=== PATIENT | male | born 1945 | race Hispanic/Latino ===

== ENCOUNTER 2017-04-24 17:10 | Outpatient (CLI) | payer MEDICARE, MEDICAID ==
--- NOTE | 2017-04-24 18:49 | ULT ---
DOPPLER VENOUS ULTRASOUND LEFT LOWER EXTREMITY: 04/24/17 INDICATION: Left leg edema with pain and redness. TECHNIQUE: Ballesteros scale, color doppler and vascular duplex with spectral analysis was performed of the deep venou s structures of the left lower extremity. Common femoral vein, superficial femoral vein, popliteal v ein, posterior tibial vein, proximal greater saphenous and profunda veins were assessed. FINDINGS: Normal compression, flow, and augmentation seen within the deep venous structures of the left lower extremity. Incidental note is made of a mildly prominent lymph node seen within the left inguinal re gion measuring up to 1.1 x 3 cm. IMPRESSION: 1. No evidence of DVT to the left lower extremity. 2. 1.1 x 3 cm lymph node within the left inguinal region. POS: [facility]
== END 2017-04-24 17:11 | disposition home or self-care (01) ==
LOC: ULT 17:10
PROVIDERS: ATTEND Internal Medicine Medical Oncology
DX: M79.605 Pain in left leg (principal); R60.0 Localized edema; D47.1 Chronic myeloproliferative disease
CPT/HCPCS: 36415; 80053; 82248; 83615; 84100; 84550

== ENCOUNTER 2017-05-08 16:38 | Day surgery (SDC) | payer MEDICARE, MEDICAID ==
[2017-05-08] MEDS ORDERED: Epoetin 40,000 UNITS/ML VIAL SC SCH (17:00)
== END 2017-05-08 17:02 | disposition home or self-care (01) ==
LOC: ONC/OP 16:38
PROVIDERS: ATTEND Internal Medicine Medical Oncology
DX: D47.1 Chronic myeloproliferative disease (principal)
CPT/HCPCS: 96372; J0885

== ENCOUNTER 2017-05-29 16:29 | Day surgery (SDC) | payer MEDICARE, MEDICAID ==
[2017-05-29] MEDS ORDERED: Epoetin 40,000 UNITS/ML VIAL SC SCH (16:45)
== END 2017-05-29 16:48 | disposition home or self-care (01) ==
LOC: ONC/OP 16:29
PROVIDERS: ATTEND Internal Medicine Medical Oncology
DX: N18.4 Chronic kidney disease, stage 4 (severe) (principal); D63.1 Anemia in chronic kidney disease; D47.1 Chronic myeloproliferative disease
CPT/HCPCS: 96372

== ENCOUNTER 2017-06-12 16:03 | Day surgery (SDC) | payer MEDICARE, MEDICAID ==
[2017-06-12 16:21] VITALS: BP 177/76
[2017-06-12] MEDS ORDERED: Epoetin 40,000 UNITS/ML VIAL SC SCH (16:30)
== END 2017-06-12 16:21 | disposition home or self-care (01) ==
LOC: ONC/OP 16:03
PROVIDERS: ATTEND Internal Medicine Medical Oncology
DX: N18.4 Chronic kidney disease, stage 4 (severe) (principal); D63.1 Anemia in chronic kidney disease; D47.1 Chronic myeloproliferative disease; Z79.82 Long term (current) use of aspirin; Z79.899 Other long term (current) drug therapy
CPT/HCPCS: 96372

== ENCOUNTER 2017-06-26 16:21 | Day surgery (SDC) | payer MEDICARE, MEDICAID ==
[2017-06-26] MEDS ORDERED: Epoetin 40,000 UNITS/ML VIAL SC SCH (17:00)
== END 2017-06-26 17:07 | disposition home or self-care (01) ==
LOC: ONC/OP 16:21
PROVIDERS: ATTEND Internal Medicine Medical Oncology
DX: N18.4 Chronic kidney disease, stage 4 (severe) (principal); D63.1 Anemia in chronic kidney disease; D47.1 Chronic myeloproliferative disease
CPT/HCPCS: 96372

== ENCOUNTER 2017-07-10 16:01 | Day surgery (SDC) | payer MEDICARE, MEDICAID ==
[2017-07-10] MEDS ORDERED: Epoetin 40,000 UNITS/ML VIAL SC SCH (16:15)
== END 2017-07-10 17:43 | disposition home or self-care (01) ==
LOC: ONC/OP 16:01
PROVIDERS: ATTEND Internal Medicine Medical Oncology
DX: N18.9 Chronic kidney disease, unspecified (principal); D63.1 Anemia in chronic kidney disease; D47.1 Chronic myeloproliferative disease
CPT/HCPCS: 96372; J0885

== ENCOUNTER 2017-07-24 16:24 | Day surgery (SDC) | payer MEDICARE, MEDICAID ==
[2017-07-24] MEDS ORDERED: Epoetin 40,000 UNITS/ML VIAL SC SCH (16:45)
== END 2017-07-24 16:38 | disposition home or self-care (01) ==
LOC: ONC/OP 16:24
PROVIDERS: ATTEND Internal Medicine Medical Oncology
DX: N18.4 Chronic kidney disease, stage 4 (severe) (principal); D63.1 Anemia in chronic kidney disease; D47.1 Chronic myeloproliferative disease
CPT/HCPCS: 80053; 82248; 83615; 84100; 84550; 96372

== ENCOUNTER 2017-08-07 15:47 | Day surgery (SDC) | payer MEDICARE, MEDICAID ==
[2017-08-07] MEDS ORDERED: Epoetin 40,000 UNITS/ML VIAL SC SCH (16:00)
== END 2017-08-07 16:35 | disposition home or self-care (01) ==
LOC: ONC/OP 15:47
PROVIDERS: ATTEND Internal Medicine Medical Oncology
DX: N18.4 Chronic kidney disease, stage 4 (severe) (principal); D63.1 Anemia in chronic kidney disease; D47.1 Chronic myeloproliferative disease; D50.8 Other iron deficiency anemias
CPT/HCPCS: 36415; 82728; 96372; J0885

== ENCOUNTER 2017-08-21 16:03 | Day surgery (SDC) | payer MEDICARE, MEDICAID ==
[2017-08-21] MEDS ORDERED: Epoetin 40,000 UNITS/ML VIAL SC SCH (16:15)
[2017-08-21 17:16] VITALS: BP 124/60; TEMP 98.6
== END 2017-08-21 17:17 | disposition home or self-care (01) ==
LOC: ONC/OP 16:03
PROVIDERS: ATTEND Internal Medicine Medical Oncology
DX: D47.1 Chronic myeloproliferative disease (principal); N18.4 Chronic kidney disease, stage 4 (severe); D63.1 Anemia in chronic kidney disease
CPT/HCPCS: 96372; J0885

== ENCOUNTER 2017-09-18 16:31 | Day surgery (SDC) | payer MEDICARE, MEDICAID ==
[2017-09-18] MEDS ORDERED: Epoetin 40,000 UNITS/ML VIAL ONE (16:41)
[2017-09-18] MEDS ORDERED: Epoetin 40,000 UNITS/ML VIAL SC SCH (17:00)
== END 2017-09-18 16:53 | disposition home or self-care (01) ==
LOC: ONC/OP 16:31
PROVIDERS: ATTEND Internal Medicine Medical Oncology
DX: N18.4 Chronic kidney disease, stage 4 (severe) (principal); D63.1 Anemia in chronic kidney disease; D47.1 Chronic myeloproliferative disease; Z79.82 Long term (current) use of aspirin; Z79.899 Other long term (current) drug therapy
CPT/HCPCS: 96372; J0885

== ENCOUNTER 2017-10-02 16:24 | Day surgery (SDC) | payer MEDICARE, MEDICAID ==
[2017-10-02] MEDS ORDERED: Epoetin 40,000 UNITS/ML VIAL ONE (16:31)
[2017-10-02 16:43] VITALS: BP 190/74
== END 2017-10-02 16:44 | disposition home or self-care (01) ==
LOC: ONC/OP 16:24
PROVIDERS: ATTEND Internal Medicine Medical Oncology
DX: D47.1 Chronic myeloproliferative disease (principal); N18.4 Chronic kidney disease, stage 4 (severe); D63.1 Anemia in chronic kidney disease; I73.9 Peripheral vascular disease, unspecified; Z98.890 Other specified postprocedural states; Z87.891 Personal history of nicotine dependence
CPT/HCPCS: 96372; J0885

== ENCOUNTER 2017-10-09 16:07 | Day surgery (SDC) | payer MEDICARE, MEDICAID ==
[2017-10-09] MEDS ORDERED: Epoetin 40,000 UNITS/ML VIAL ONE (16:20)
== END 2017-10-09 16:28 | disposition home or self-care (01) ==
LOC: ONC/OP 16:07
PROVIDERS: ATTEND Internal Medicine Medical Oncology
DX: N18.4 Chronic kidney disease, stage 4 (severe) (principal); D63.1 Anemia in chronic kidney disease; D47.1 Chronic myeloproliferative disease; I70.25 Atherosclerosis of native arteries of other extremities with ulceration; Z87.891 Personal history of nicotine dependence
CPT/HCPCS: 96372; J0885

== ENCOUNTER 2017-10-16 16:23 | Day surgery (SDC) | payer MEDICARE, MEDICAID ==
[2017-10-16] MEDS ORDERED: Epoetin 40,000 UNITS/ML VIAL SC SCH ×2 (16:30→17:30)
[2017-10-16] MEDS ORDERED: Epoetin (ESRD) 20,000 UNITS/ML SC SCH (17:30)
== END 2017-10-16 17:52 | disposition home or self-care (01) ==
LOC: ONC/OP 16:23
PROVIDERS: ATTEND Internal Medicine Medical Oncology
DX: N18.4 Chronic kidney disease, stage 4 (severe) (principal); D63.1 Anemia in chronic kidney disease; D47.1 Chronic myeloproliferative disease
CPT/HCPCS: 96372; J0885; Q4081

== ENCOUNTER 2017-10-23 15:55 | Day surgery (SDC) | payer MEDICARE, MEDICAID ==
[2017-10-23] MEDS ORDERED: Epoetin (ESRD) 20,000 UNITS/ML SC SCH (16:15)
[2017-10-23] MEDS ORDERED: Epoetin 40,000 UNITS/ML VIAL SC SCH (16:15)
[2017-10-23 16:17] VITALS: BP 163/70; TEMP 98.4
== END 2017-10-23 17:14 | disposition home or self-care (01) ==
LOC: ONC/OP 15:55
PROVIDERS: ATTEND Internal Medicine Medical Oncology
DX: N18.4 Chronic kidney disease, stage 4 (severe) (principal); D47.1 Chronic myeloproliferative disease; D63.1 Anemia in chronic kidney disease; I73.9 Peripheral vascular disease, unspecified; M19.90 Unspecified osteoarthritis, unspecified site; Z87.891 Personal history of nicotine dependence; Z79.899 Other long term (current) drug therapy
CPT/HCPCS: 96372; J0885; Q4081

== ENCOUNTER 2017-10-30 16:26 | Day surgery (SDC) | payer MEDICARE, MEDICAID ==
[2017-10-30] MEDS ORDERED: Epoetin 40,000 UNITS/ML VIAL SC SCH (16:45)
[2017-10-30] MEDS ORDERED: Epoetin (ESRD) 20,000 UNITS/ML SC SCH (16:45)
== END 2017-10-30 17:09 | disposition home or self-care (01) ==
LOC: ONC/OP 16:26
PROVIDERS: ATTEND Internal Medicine Medical Oncology
DX: D47.1 Chronic myeloproliferative disease (principal); N18.4 Chronic kidney disease, stage 4 (severe); D63.1 Anemia in chronic kidney disease; Z87.891 Personal history of nicotine dependence
CPT/HCPCS: 96372; J0885; Q4081

== ENCOUNTER 2017-11-13 16:13 | Day surgery (SDC) | payer MEDICARE, MEDICAID ==
[2017-11-13] MEDS ORDERED: Epoetin (ESRD) 20,000 UNITS/ML SC SCH (16:30)
[2017-11-13] MEDS ORDERED: Epoetin 40,000 UNITS/ML VIAL SC SCH (16:30)
[2017-11-13 16:36] VITALS: BP 168/81; TEMP 98.5
== END 2017-11-13 17:01 | disposition home or self-care (01) ==
LOC: ONC/OP 16:13
PROVIDERS: ATTEND Internal Medicine Medical Oncology
DX: D47.1 Chronic myeloproliferative disease (principal); N18.4 Chronic kidney disease, stage 4 (severe); D63.1 Anemia in chronic kidney disease
CPT/HCPCS: 96372; J0885; Q4081

== ENCOUNTER 2017-11-27 16:07 | Day surgery (SDC) | payer MEDICARE, MEDICAID ==
[2017-11-27] MEDS ORDERED: Epoetin (ESRD) 20,000 UNITS/ML SC SCH (16:30)
[2017-11-27] MEDS ORDERED: Epoetin 40,000 UNITS/ML VIAL SC SCH (16:30)
[2017-11-27 17:19] VITALS: BP 134/77; TEMP 98.1
== END 2017-11-27 17:19 | disposition home or self-care (01) ==
LOC: ONC/OP 16:07
PROVIDERS: ATTEND Internal Medicine Medical Oncology
DX: D47.1 Chronic myeloproliferative disease (principal); N18.1 Chronic kidney disease, stage 1; D63.1 Anemia in chronic kidney disease; Z87.891 Personal history of nicotine dependence; Z79.82 Long term (current) use of aspirin; Z79.899 Other long term (current) drug therapy
CPT/HCPCS: 96372; J0885; Q4081

== ENCOUNTER 2018-01-09 20:50 | Inpatient (IN) | payer MEDICARE, MEDICAID ==
[~2018-01-09 20:50] MED LIST: ISOVUE-370 76%-LOCM 1 ML ONE
[2018-01-09] MEDS ORDERED: Acetaminophen 500 MG TAB ONE (21:42)
--- NOTE | 2018-01-09 22:06 | RAD ---
PORTABLE CHEST: 01/09/18 HISTORY: Chest pain. There is diffuse vascular congestion with diffuse hazy confluent alveolar infiltrates bilaterally sug gesting diffuse edema. Evidence of small effusions. Large caliber central line with tip overlying the right atrium. IMPRESSION: Evidence of vascular congestion and bilateral infiltrates suggesting edema. Inflammatory infiltrates cannot be excluded. POS: [facility]
[2018-01-09] MEDS ORDERED: Cefepime 2 GM VIAL ONE (22:20)
[2018-01-09 22:29] LABS: Hemoglobin 7.3 g/dL (14.0-18.0); Mean Corpuscular HGB CONC 32.5 g/dL (32.0-36.0); Mean Corpuscular Hemoglobin 32.8 pg (27.0-31.0); Mean Platelet Volume 7.4 fL (7.4-10.4); Platelet Count 337 thou/uL (130-400); RBC Distribution Width 16.2 % (11.5-14.5); Red Blood Cell (RBC) Count 2.22 mill/uL (4.70-6.10); White Blood Cell (WBC) Count 27.7 thou/uL (4.8-10.8)
[2018-01-09 22:43] LABS: Band 16 % (5-11); Lymphocytes 3 % (21-51); MDiff Complete? YES; Monocytes 6 % (0-10); Neutrophil 75 % (42-75)
[2018-01-09 22:45] LABS: Bilirubin Negative (Negative); Blood, Urine Negative (Negative); Clarity CLEAR (Clear); Glucose, Urine (Dipstick) 100 mg/dL (Negative); Leukocyte Negative (Negative); Nitrite Negative (Negative); Protein, Urine (Dipstick) 100 mg/dL (Neg-Trace); Specific Gravity, Urine 1.006 (1.002-1.036); Urobilinogen 0.2 mg/dL (0.2-1.0)
[2018-01-09 22:47] LABS: ALT (SGPT) 7 U/L (8-55); AST (SGOT) 19 U/L (5-34); Albumin 2.3 g/dL (3.4-4.8); Alkaline Phosphatase 82 U/L (40-150); Anion Gap 14 mmol/L (10-20); BUN (Urea Nitrogen) 34 mg/dL (8.4-25.7); Bilirubin, Total 0.3 mg/dL (0.2-1.2); Calc. Creatinine Clearance 0 mL/min (70-130); Calcium 7.6 mg/dL (7.8-10.44); Carbon Dioxide 28 mmol/L (23-31); Chloride 98 mmol/L (98-107); Estimated GFR-MDRD 15; Globulin 4.6 g/dL (2.4-3.5); Glucose 108 mg/dL (83-110); Magnesium 1.9 mg/dL (1.6-2.6); Potassium 3.7 mmol/L (3.5-5.1); Protein, Total 6.9 g/dL (5.8-8.1); Sodium 136 mmol/L (136-145)
[2018-01-09 22:47] LABS: Bacteria/HPF None Seen HPF (None Seen); Hyaline Casts/LPF 0-3 HYALINE CAST LPF (0-3 Hyaline); Pathc Cast-AUWi Flag 0.14 (0-2.49); RBC/HPF 0-3 HPF (0-3); Squamous Epithelial 0-3 HPF (0-3); WBC/HPF 0-3 HPF (0-3)
[2018-01-09 22:50] LABS: CKMB 1.8 ng/mL (0-6.6)
[2018-01-09 23:08] LABS: Troponin I 0.322 ng/mL (< 0.028)
--- NOTE | 2018-01-09 23:59 | CT ---
CT ANGIO OF CHEST WITH CONTRAST 01/09/18 Multiple axial tomograms obtained through the chest with angio protocol with multiplanar reconstructi on and 3D postprocessing. INDICATIONS: Dyspnea. FINDINGS: Coronary arteries show adequate opacification. There is no evidence of pulmonary embolus. There is cardiomegaly with vascular congestion. Diffuse bilateral perihilar infiltrates are most cons istent with bilateral perihilar alveolar edema. There are small bilateral effusions. No evidence of a denopathy. Images through upper abdomen reveal a right adrenal mass measuring up to 3 cm. This mass i s indeterminate on this single phase study; however, the size of this mass is worrisome for neoplasm. IMPRESSION: 1. No evidence of pulmonary embolus. No evidence of thoracic aortic dissection. 2. Cardiomegaly with vascular congestion and diffuse bilateral perihilar alveolar infiltrates mo st suggestive of pulmonary edema. 3. Small bilateral effusions. 4. Right adrenal mass. 5. There is evidence of cholelithiasis with a single small radiopaque gallstone noted in the gal lbladder fundus. POS: [facility]
[2018-01-10] MEDS ORDERED: Heparin 5,000 UNITS/ML VIAL ONE (01:56)
[2018-01-10] MEDS ORDERED: Acetaminophen 325 MG TAB PO PRN (02:18)
[2018-01-10] MEDS ORDERED: Ondansetron HCl/PF 4 MG/2 ML Vial IVP PRN (02:18)
[2018-01-10 02:23] LABS: Troponin I 0.371 ng/mL (< 0.028)
[2018-01-10 03:44] LABS: Hemoglobin 6.9 g/dL (14.0-18.0); Mean Corpuscular HGB CONC 32.4 g/dL (32.0-36.0); Mean Corpuscular Hemoglobin 32.9 pg (27.0-31.0); Mean Platelet Volume 7.5 fL (7.4-10.4); Platelet Count 298 thou/uL (130-400); RBC Distribution Width 16.2 % (11.5-14.5); Red Blood Cell (RBC) Count 2.11 mill/uL (4.70-6.10); White Blood Cell (WBC) Count 27.3 thou/uL (4.8-10.8)
[2018-01-10 04:04] LABS: Anion Gap 13 mmol/L (10-20); BUN (Urea Nitrogen) 35 mg/dL (8.4-25.7); Calc. Creatinine Clearance 0 mL/min (70-130); Calcium 7.7 mg/dL (7.8-10.44); Carbon Dioxide 29 mmol/L (23-31); Chloride 97 mmol/L (98-107); Estimated GFR-MDRD 15; Glucose 98 mg/dL (83-110); Potassium 3.6 mmol/L (3.5-5.1); Sodium 135 mmol/L (136-145)
[2018-01-10 04:05] LABS: Band 17 % (5-11); MDiff Complete? YES; Monocytes 8 % (0-10); Neutrophil 75 % (42-75)
[2018-01-10 04:09] LABS: Troponin I 0.379 ng/mL (< 0.028)
[2018-01-10] MEDS ORDERED: Vancomycin HCl 500 MG in Sodium Chloride 0.9% 100 ML IVPB SCH (05:15)
[2018-01-10] MEDS ORDERED: Vancomycin HCl 1 GM in Premix Bag 1 BAG IVPB SCH (05:15)
[2018-01-10] MEDS ORDERED: Vancomycin HCl 250 MG in Sodium Chloride 0.9% 100 ML IVPB SCH (05:15)
[2018-01-10] MEDS ORDERED: Vancomycin HCl 750 MG in Sodium Chloride 0.9% 250 ML 250 ML IVPB SCH (05:15)
[2018-01-10] MEDS ORDERED: HOLD VANCOMYCIN FOR LEVEL >20 FS SCH (05:15)
--- NOTE | 2018-01-10 07:24 | HP ---
TIME OF EVALUATION: 2:00 a.m. CHIEF COMPLAINT: Shortness of breath. PRIMARY CARE PHYSICIAN: Dr. Casarez. CODE STATUS: FULL CODE. HISTORY OF PRESENT ILLNESS: A 72-year-old male patient with past medical history of end-stage renal disease, received dialysis in [place]. Patient initially was sent here for fevers and tachycardia, p atient has been gradually getting worsening shortness of breath, reported severe with no clear trigge rs, no alleviating factors. Symptoms have been present for a few hours. REVIEW OF SYSTEMS: Constitutional: Fever, chills, generalized weakness. Respiratory: The patient has significant shortness of breath, needing oxygen, cough. Cardiovascular: No chest pain, palpitat ions. Gastrointestinal: No nausea, no vomiting, no diarrhea, no abdominal pain. Central Nervous Sy stems: No dizziness, headache, or feeling lightheaded. Genitourinary: No burning on urination. Ex tremities: Patient has bilateral leg swelling. All other systems were reviewed and were negative ex cept for the findings mentioned above. PAST MEDICAL HISTORY: History of end-stage renal disease, back pain, sepsis, pneumonia, atrial fibri llation, flu, hyperlipidemia, hypertension. PAST SURGICAL HISTORY: Dialysis port, hernia surgery. PSYCHIATRIC HISTORY: Negative. SOCIAL HISTORY: No alcohol, no drugs. No smoking history. Patient lives in a care home. ALLERGIES: No known drug allergies. FAMILY HISTORY: Reviewed and noncontributory for cardiac presentation. MEDICATIONS: Tylenol, ____, aspirin, atorvastatin, calcium acetate, vitamin D, cilostazol, cyclobenz aprine, finasteride, gabapentin, hydroxyurea, lisinopril, pantoprazole, prednisolone, vitamin D3, Aug mentin. PHYSICAL EXAMINATION: VITAL SIGNS: On presentation, blood pressure 120/66, heart rate 118, respiratory rate was 22, temper ature 100.7. GENERAL APPEARANCE: Patient is alert, oriented, and in mild distress due to respiratory failure. HEENT: Eyes: Normal conjunctivae. Moist oral mucosa. Anicteric. NECK: Bilateral JVD. Right IJ dialysis catheter. RESPIRATORY: Bilateral air entry. No rales, wheezes. Symmetric expansion. CARDIOVASCULAR: Tachycardia, regular rhythm. No murmurs, no gallop. EXTREMITIES: Bilateral leg edema. ABDOMEN: Soft. Normal bowel sounds. MUSCULOSKELETAL: Baseline range of motion and strength. No tenderness. SKIN: Warm and dry. No apparent rash or redness. NEUROLOGIC: Baseline sensorium. No evidence of any new focal weakness. Baseline speech. Cranial n erve seems to be intact. PSYCHIATRIC: The patient is in a good mood. No anxiety, oriented, optimal judgement. IMAGING: CT angio was done chest with and without contrast, no PE, small pleural effusions and pulmo nary edema was reported. EKG was reviewed. LABORATORY DATA: Reviewed. The patient has white count 27.7 with hemoglobin 7.3, MCV 101, platelet count 337,000. Chemistry: Sodium 136, potassium 3.7, chloride 98, carbon dioxide 28, anion gap 14, BUN 34, creatinine 4.0, GFR 15. Lactic acid was normal. Calcium 7.6, magnesium 1.9. LFTs were norm al. Troponin initial, one was 0.322, second one was 0.37 with beta-natriuretic peptide 10,952. UA w as done and was normal. ASSESSMENT AND PLAN: The patient was placed in the hospital for the following medical problems: 1. Acute hypoxic respiratory failure. The patient ____ likely secondary to pulmonary edema, possibl e underlying infection, given the fever on presentation. Continue oxygen support, patient will need hemodialysis. Dr. Grijalva has been called for further recommendations. 2. Possible sepsis. The patient has leukocytosis, tachycardia, likely source could be underlying pn eumonia, the patient with broad spectrum antibiotics, pharmacy to dose, as per kidney function. We a re limited to hydration due to patient's fluid overload. 3. End-stage renal disease, on hemodialysis. Dr. Grijalva has been called for further recommendat ions. 4. Possible bilateral pneumonia, seen on the CT, given presentation with fever, broad-spectrum antib iotic. Treatment as above. 5. Microcytic anemia with hemoglobin 7.3, maybe illusional due to fluid overload, also component fro m chronic kidney disease. We will defer to Nephro for further management. 6. Yao-YQ-ybrsparku myocardial infarction type 2. Patient has troponin 0.3, has been stable, likely due to underlying conditions. We will treat fluid overload and sepsis. 7. Deep vein thrombosis prophylaxis. 8. Uncontrolled hypertension, the patient has presented with normal blood pressure. Reconcile home meds, adjust as needed. We will not treat aggressively due to sepsis.
[2018-01-10] MEDS: Aspirin 325 MG TAB PO SCH (08:18)
[2018-01-10] MEDS: Finasteride 5 MG TAB PO SCH (08:18)
[2018-01-10] MEDS: Gabapentin 400 MG CAP PO SCH ×3 (08:18→21:59)
[2018-01-10] MEDS: Lisinopril 10 MG TAB PO SCH (08:19)
[2018-01-10] MEDS: Heparin 5,000 UNITS/ML VIAL SC SCH ×3 (08:19→22:00)
[2018-01-10 09:41] LABS: HBSAg Index 0.16 S/CO (0-0.99); Hep B Surf Ag Non-Reactive S/CO (NonReactive)
[2018-01-10 09:42] LABS: HBSAB Concentration 1.44 mIU/mL; Hep B Surf AB Non-Reactive (NonReactive)
[2018-01-10] MEDS ORDERED: Heparin 1,000 UNITS/ML VIAL ONE (11:11)
--- NOTE | 2018-01-10 11:53 | PDOC.PN ---
- Subjective Encounter Start Date: 01/10/18 Encounter Start Time: 11:51 Ms. Childs was seen today in follow-up of acute respiratory failure. He says he is feeling a bit better. He says he is less short of breath. He says that he has been having diarrhea for almost a month now. H says it started after he fell , and hurt his lower back. He says every time he stands he will have a runny stool, which is difficult to control. He denies abdominal pain. - Objective Resuscitation Status: Resuscitation Status FULL:Full Resuscitation MAR Reviewed: Yes Vital Signs & Weight: Vital Signs (12 hours) Temp Pulse Pulse Resp BP BP Pulse Ox 01/10/18 10:06 97.5 F L 91 18 101/65 98 01/10/18 08:00 97.0 F L 94 18 96 01/10/18 07:11 97.0 F L 94 18 109/53 L 97 01/10/18 03:47 97.7 F 81 16 106/62 100 Weight Weight 129 lb 7.992 oz I&O: 01/09/18 01/10/18 01/11/18 06:59 06:59 06:59 Intake Total 350 Balance 350 Result Diagrams: 01/10/18 03:31 01/10/18 03:31 Phys Exam - Physical Examination HEENT: PERRLA Respiratory: no wheezing, no rales, no rhonchi, clear to auscultation bilateral Cardiovascular: RRR, no significant murmur, no rub Gastrointestinal: soft, non-tender, positive bowel sounds Musculoskeletal: edema present 1+ pittine edema with chronic venous stasis changes + dark purple excoriations on both 1st toes Neurological: non-focal, moves all 4 limbs Dx/Plan (1) Acute respiratory failure Code(s): J96.00 - ACUTE RESPIRATORY FAILURE, UNSP W HYPOXIA OR HYPERCAPNIA Status: Acute (2) CHF exacerbation Code(s): I50.9 - HEART FAILURE, UNSPECIFIED Status: Acute (3) Diarrhea Code(s): R19.7 - DIARRHEA, UNSPECIFIED Status: Acute (4) Sepsis Code(s): A41.9 - SEPSIS, UNSPECIFIED ORGANISM Status: Acute (5) Elevated troponin Code(s): R74.8 - ABNORMAL LEVELS OF OTHER SERUM ENZYMES Status: Acute (6) End stage renal disease on dialysis Code(s): N18.6 - END STAGE RENAL DISEASE; Z99.2 - DEPENDENCE ON RENAL DIALYSIS Status: Acute (7) Atrial fibrillation Code(s): I48.91 - UNSPECIFIED ATRIAL FIBRILLATION Status: Acute (8) Hypertension Code(s): I10 - ESSENTIAL (PRIMARY) HYPERTENSION Status: Acute - Plan * Acute respiratory failure- from Pneumonia, or CHF or both- Continue broad spectrum antibiotics * Diarrhea- will check stool for C. Diff * He has elevated troponins, and an Elevated BNP- will check an Echo, and continue to trend troponin, he may need Cardiology consult * ESRD- continue Dialysis * HTN- blood pressure is stable.
[2018-01-10] MEDS ORDERED: Cyclobenzaprine 10 MG TAB PO PRN (12:03)
[2018-01-10 12:39] LABS: Iron 42 ug/dL (65-175); Iron Binding Capacity, Total 115 mcg/dL (261-462)
[2018-01-10 13:15] LABS: Troponin I 0.292 ng/mL (< 0.028)
[2018-01-10 13:41] VITALS: BMI 22.2
[2018-01-10] MEDS: Carvedilol 3.125 MG TAB PO SCH (16:15)
[2018-01-10] MEDS: Calcium Acetate 667 MG CAP PO SCH (16:15)
[2018-01-10] MEDS: Cilostazol 100 MG TAB PO SCH (16:20)
--- NOTE | 2018-01-10 20:19 | CON ---
DATE OF CONSULTATION: 01/10/2018 SERVICE: Pulmonary Medicine. REASON FOR CONSULTATION: [facility] patient. HISTORY OF PRESENT ILLNESS: The patient is a 72-year-old male with past medical history sig nificant for end-stage renal disease. He is in his usual state of health when he started having incr easing shortness of breath over a period of about a day and a half. He had some cough, he is bringin g up a little bit of white phlegm. Otherwise, he was in his usual state of health. He denies having any infectious prodrome. He did not have any fever or night sweats. He does not have any hot, red, swollen joints, or new rashes. He is having increasing swelling in his lower extremities and a bryan le bit of weight gain. He is currently above his dry weight. Either way, he went for dialysis this morning. I gave him 2 units of blood, in addition to getting 1.5 to 2 liters of fluid off of him. Eric gibson is actually breathing much more comfortably. He indicates to me that he is back to his usual state of health. He is down to 2 liters nasal cannula, which is what he has been wearing in his rehabil[facility] recently. His biggest complaint at this point is back pain. It has been ongoing for a period about a month. There is apparently a hairline fracture that may be there. Some of these poss ibly thinking about doing an MRI in the outpatient setting. PAST MEDICAL HISTORY: 1. End-stage renal disease. 2. Atrial fibrillation. 3. Dyslipidemia. 4. Hypertension. PAST SURGICAL HISTORY: 1. Dialysis port. 2. Herniorrhaphy. SOCIAL HISTORY: Negative for alcohol, tobacco or illicit drug use. Currently lives in a [facility]. He has no exposure to chemicals, dust, asbestos, or tuberculosis currently. FAMILY HISTORY: Noncontributory. ALLERGIES: No known drug allergies. MEDICATIONS: List of his inpatient medications were reviewed. No specific updates were made at this time. REVIEW OF SYSTEMS: General, head, ears, eyes, nose, throat, cardiovascular, respiratory, GI, , mus culoskeletal, neurologic, and skin is negative except mentioned in the HPI. PHYSICAL EXAMINATION: VITAL SIGNS: Afebrile, pulse 95, blood pressure 127/71, respirations 16, and saturation 98% on 4 lit ers nasal cannula. GENERAL: The patient is awake, alert, no apparent distress. LUNGS: Excellent air entry. Crackles are present dependently. There is no prolonged expiratory pha se or wheezing appreciated. HEART: Normal rate, regular. ABDOMEN: Soft, nontender, nondistended. Bowel sounds are positive. MUSCULOSKELETAL: No cyanosis or clubbing. There is 2+ pitting in the bilateral lower extremities. GENITOURINARY: No Chen. NEUROLOGIC: Grossly nonfocal. LABORATORY DATA: WBC 27.3, hemoglobin 6.9, platelets 298,000. Creatinine 4.05, BUN 35. Basic metab olic profile is otherwise unremarkable. Calcium 7.7, iron 42, TIBC 115. Ferritin 592. Troponin is down trending to 0.298. BNP 11,000. Liver function studies are otherwise unremarkable. Urinalysis is only significant for minimal proteinuria, and glycosuria. Hepatitis B antigen, antibiotics and in dex were unremarkable. Blood cultures x2, urine culture are negative so far. IMAGIN. CTA of the chest demonstrates no evidence of PE. He has got diffuse ground glass opacifications, bilateral pleural effusions, and pulmonary vascular congestion, consistent with volume overload. He has a right adrenal mass. 2. Chest x-ray demonstrates of pulmonary vascular congestion. ASSESSMENT: 1. Acute hypoxic respiratory failure. 2. End-stage renal disease. 3. Anasarca. 4. Non-ST elevation myocardial infarction. 5. Systemic inflammatory response syndrome, resolved. DISCUSSION AND PLAN: I will put the patient back on his Augmentin, which was previously taking prior to coming to the Emergency Department. We will rapidly deescalate his broad spectrum antibiotics as I really do not think that an acute infectious lung issue is our culprit here. The patient has had a rapid improvement in symptoms associated with nothing more than volume removal. From my perspectiv e, he is stable for transition to the medical unit. Pulmonary Critical Care will continue to follow along while patient remains in this location, however.
--- NOTE | 2018-01-10 21:40 | CON ---
DATE OF CONSULTATION: 01/10/2018 REQUESTING PHYSICIAN: Dr. Ball. REASON FOR CONSULTATION: The need for maintenance hemodialysis. IMPRESSION: 1. End-stage renal disease, hemodialysis dependent. 2. Severe anemia, symptomatic. PLAN: 1. Transfer this patient with 2 units of blood during dialysis today in accordance with the patient' s schedule of Friday, , and Friday. 2. Ultrafiltration as tolerated by hemodynamics. HISTORY OF PRESENT ILLNESS: History is that of 72-year-old gentleman with end-stage renal disease, h emodialysis dependent, who presented here with fever and worsening shortness of breath, noted to be s everely anemic on presentation with hemoglobin of 6.5. The patient is due for dialysis today, thus t he need for renal consultation. PAST MEDICAL HISTORY: Significant for end-stage renal disease, hemodialysis dependent, pneumonia, at rial fibrillation, dyslipidemia, hypertension. MEDICATIONS: Reviewed and as documented on [employer]. SOCIAL HISTORY: No alcohol, no tobacco, no illicit drug use. ALLERGIES: No known drug allergies. FAMILY HISTORY: Not significantly related to the presenting illness. PHYSICAL EXAMINATION: GENERAL: The patient was found not to be in any obvious distress at this point, status post hemodial ysis treatment, seems to be feeling better noted with the following vital signs. VITAL SIGNS: Afebrile, temperature 97.2, pulse 95, respiratory rate of 19, O2 sat 99% on 2 liters wi th blood pressure 137/76. HEENT: Unremarkable. Moist oral mucosa. Neck was supple, no conjunctival injection or icterus. CARDIOVASCULAR SYSTEM: First and second heart sounds were heard. RESPIRATORY SYSTEM: Clear to auscultation. DIGESTIVE SYSTEM: Revealed a benign abdomen with positive bowel sounds. EXTREMITIES: No peripheral edema. SKIN: No new gross rash. LYMPHATICS: No peripheral lymphadenopathy. SUMMARY: A 72-year-old gentleman with end-stage renal disease, hemodialysis dependent, who presented here with severe symptomatic anemia. Thank you for this consultation. We will follow with you.
[2018-01-10] MEDS: Amoxicillin/Potassium Clav 500 MG TAB PO SCH (21:57)
[2018-01-10] MEDS: Atorvastatin Calcium 40 MG TAB PO SCH (21:58)
[2018-01-10] MEDS: Calcium Carbonate + Vit D 250 MG TAB PO SCH (21:59)
[2018-01-11 04:16] LABS: Anion Gap 12 mmol/L (10-20); BUN (Urea Nitrogen) 23 mg/dL (8.4-25.7); Calc. Creatinine Clearance 19 mL/min (70-130); Calcium 7.6 mg/dL (7.8-10.44); Carbon Dioxide 28 mmol/L (23-31); Chloride 101 mmol/L (98-107); Estimated GFR-MDRD 22; Glucose 75 mg/dL (83-110); Potassium 3.3 mmol/L (3.5-5.1); Sodium 138 mmol/L (136-145)
[2018-01-11 05:02] LABS: Band 21 % (5-11); Hemoglobin 9.4 g/dL (14.0-18.0); Lymphocytes 2 % (21-51); MDiff Complete? YES; Mean Corpuscular HGB CONC 33.2 g/dL (32.0-36.0); Mean Corpuscular Hemoglobin 31.7 pg (27.0-31.0); Mean Corpuscular Volume 95.6 fL (78.0-98.0); Mean Platelet Volume 7.7 fL (7.4-10.4); Monocytes 6 % (0-10); Neutrophil 71 % (42-75); Platelet Count 273 thou/uL (130-400); RBC Distribution Width 16.7 % (11.5-14.5); Red Blood Cell (RBC) Count 2.95 mill/uL (4.70-6.10); White Blood Cell (WBC) Count 21.7 thou/uL (4.8-10.8)
[2018-01-11] MEDS: Cilostazol 100 MG TAB PO SCH ×2 (09:08→14:55)
[2018-01-11] MEDS: Calcium Carbonate + Vit D 250 MG TAB PO SCH ×2 (09:09→21:25)
[2018-01-11] MEDS: Carvedilol 3.125 MG TAB PO SCH ×2 (09:10→17:06)
[2018-01-11] MEDS: Amoxicillin/Potassium Clav 500 MG TAB PO SCH ×2 (09:10→21:25)
[2018-01-11] MEDS: Aspirin 325 MG TAB PO SCH (09:10)
[2018-01-11] MEDS: Calcium Acetate 667 MG CAP PO SCH ×3 (09:10→17:03)
[2018-01-11] MEDS: Hydroxyurea 500 MG CAP PO SCH (09:11)
[2018-01-11] MEDS: Gabapentin 400 MG CAP PO SCH ×3 (09:11→21:25)
[2018-01-11] MEDS: Finasteride 5 MG TAB PO SCH (09:11)
[2018-01-11] MEDS: Heparin 5,000 UNITS/ML VIAL SC SCH ×3 (09:11→21:26)
[2018-01-11] MEDS: Lisinopril 10 MG TAB PO SCH (09:12)
[2018-01-11] MEDS: Anagrelide HCl 0.5 MG CAP PO SCH (09:57)
--- NOTE | 2018-01-11 13:26 | PDOC.PN ---
- Subjective Encounter Start Date: 01/11/18 Encounter Start Time: 13:24 Mr. Childs was seen today in follow-up. He says he is feeling better. He is less short of breath, but is not sure how he would do if he were up ambulating. - Objective Resuscitation Status: Resuscitation Status FULL:Full Resuscitation MAR Reviewed: Yes Vital Signs & Weight: Vital Signs (12 hours) Temp Pulse Resp BP Pulse Ox 01/11/18 08:51 98.4 F 104 H 16 128/70 97 01/11/18 03:41 98.0 F 94 18 126/69 96 Weight Admit Weight 129 lb Weight 129 lb 7.992 oz I&O: 01/10/18 01/11/18 01/12/18 06:59 06:59 06:59 Intake Total 860 Output Total 1500 Balance -640 Result Diagrams: 01/11/18 03:14 01/11/18 03:14 Phys Exam - Physical Examination HEENT: PERRLA Respiratory: no wheezing, no rales, no rhonchi, clear to auscultation bilateral Cardiovascular: RRR, no significant murmur, no rub Gastrointestinal: soft, non-tender, positive bowel sounds Musculoskeletal: no edema Dx/Plan (1) Acute respiratory failure Code(s): J96.00 - ACUTE RESPIRATORY FAILURE, UNSP W HYPOXIA OR HYPERCAPNIA Status: Acute (2) CHF exacerbation Code(s): I50.9 - HEART FAILURE, UNSPECIFIED Status: Acute (3) Diarrhea Code(s): R19.7 - DIARRHEA, UNSPECIFIED Status: Acute (4) Sepsis Code(s): A41.9 - SEPSIS, UNSPECIFIED ORGANISM Status: Acute (5) Elevated troponin Code(s): R74.8 - ABNORMAL LEVELS OF OTHER SERUM ENZYMES Status: Acute (6) End stage renal disease on dialysis Code(s): N18.6 - END STAGE RENAL DISEASE; Z99.2 - DEPENDENCE ON RENAL DIALYSIS Status: Acute (7) Atrial fibrillation Code(s): I48.91 - UNSPECIFIED ATRIAL FIBRILLATION Status: Acute (8) Hypertension Code(s): I10 - ESSENTIAL (PRIMARY) HYPERTENSION Status: Acute - Plan * Acute respiratory failure- improved after dialysis, I suspect this was due to volume overload- he also has an elevated tropoin, which if he is not septic is no explained. He also has a lower than normal EF, and he tells me he has not had a Cardiology work-up- Will consult Cardiology * Elevated WBC count- unsure if this may be due to a chronic blood disorder-( he has seen Dr. Durham in the past, but I can not see these records, may contact his office in the AM) * Diarrhea- improving without specific treatment, and C. Diff was negative- will monitor * ESRD- stable.
--- NOTE | 2018-01-11 18:14 | PRG ---
DATE OF SERVICE: 01/11/2018 SUBJECTIVE: The patient was seen and examined, feeling much better. Hemodynamically stable. PHYSICAL EXAMINATION: VITAL SIGNS: Afebrile with temperature 98.4, pulse 94, respiratory rate 18, blood pressure 126/69, O 2 sat 96%. HEENT: Unremarkable. CARDIOVASCULAR: First and second heart sounds were heard. RESPIRATORY SYSTEM: Clear to auscultation. DIGESTIVE SYSTEM: Revealed a benign abdomen with positive bowel sounds. EXTREMITIES: No peripheral edema. SKIN: No new gross rash. LYMPHATICS: No peripheral lymphadenopathy. LABORATORY DATA: Laboratory investigation showed a white count of 21,000, hemoglobin 9.4. Chemistry showed a potassium of 3.3, creatinine 2.8. BNP of 10,898. IMPRESSION: 1. End-stage renal disease, hemodialysis dependent. 2. Mild hypokalemia. 3. Anemia, status post blood transfusion. PLAN: 1. We will continue with hemodialysis per his schedule. 2. Erythropoiesis-stimulating agent to be continued. 3. Further management will be dependent on the clinical course.
--- NOTE | 2018-01-11 20:22 | PRG ---
DATE OF SERVICE: 01/11/2018 SERVICE: Pulmonary Medicine. INTERVAL HISTORY: The patient continues to breathe well. He is on 2 liters nasal cannula. He has n o chest pain, nausea, vomiting, fevers or chills. Otherwise, he is returning to his usual state of h ealth. He has no specific complaints and is actually thinking about trying to get out of here in a d ay or two. PHYSICAL EXAMINATION: VITAL SIGNS: Afebrile, pulse 95, blood pressure 128/71, respirations 20, saturation 97% on 4 liters nasal cannula. GENERAL: The patient is awake, alert, no apparent distress. LUNGS: Excellent air entry. There are some dependent crackles present. These are minimal. HEART: Normal rate, regular. ABDOMEN: Soft, nontender, nondistended. Bowel sounds are positive. MUSCULOSKELETAL: No cyanosis or clubbing. There is 1+ pitting in the bilateral lower extremities. NEUROLOGIC: Grossly nonfocal. IMAGING: Echocardiogram demonstrates 40% ejection fraction with moderate aortic regurgitation and mi tral regurgitation. Unsurprisingly, there is some elevated right ventricular systolic pressures. Laboratory DATA: WBC 21.7 and down trending. Hemoglobin 9.4, platelets 273,000. Band count is 21% with 71% neutrophils. Creatinine 2.88, potassium 3.3. Basic metabolic profile is otherwise unremark able. BNP is stable at 11,000. C. diff antigen and toxin are unremarkable. Blood cultures x2 and u rine culture negative to date. ASSESSMENT: 1. Acute hypoxic respiratory failure, improving. 2. End-stage renal disease with massive volume overload. 3. 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 4. Non-ST elevation myocardial infarction. 5. Systemic inflammatory response syndrome without evidence of infectious process. 6. Anasarca, slowly improving. PLAN: I will continue supportive care for the time being. There is no clear cut source of infection . That being said, we will continue the p.o. antibiotics for the time being. White blood cell count is coming down very nicely. This may have been a leukemoid reaction secondary to the severe anemia. If the white blood cell continues to trend in a favorable direction, this would be the most likely situation. Pulmonary will continue to follow while he remains in house for the time being. Hopefull y, he will be able to tolerate dialysis more fully so that we can get him close to euvolemia.
[2018-01-11] MEDS: Atorvastatin Calcium 40 MG TAB PO SCH (21:25)
--- NOTE | 2018-01-12 00:12 | CON ---
DATE OF CONSULTATION: 01/11/2018 REASON FOR CONSULTATION: Abnormal echocardiogram, severe anemia, end-stage renal disease. HISTORY OF PRESENT ILLNESS: Mr. Childs is a 72-year-old gentleman. He was admitted to the [facility] here. He was seen on 01/10/2018 at 2 in the morning by Dr. Ball. The patient has a past hist ory of end-stage renal disease. The patient is unable to tell me how long he has been on dialysis. He came in for worsening shortness of breath and fever, and was found to be severely anemic. The patient denies chest pain or pressure. REVIEW OF SYSTEMS: Constitutional: Positive for fever, chills, generalized weakness. Respiratory: Positive for shortness of breath. Cardiovascular: No chest pain. Gastrointestinal: No nausea, vo miting, diarrhea. Skin: No rashes. Neurologic: No unilateral weakness or numbness. Psychiatric: No unusual depression or anxiety. PAST MEDICAL HISTORY: 1. End-stage renal disease. He is unable to tell me how long. 2. Sepsis. 3. Atrial fibrillation. 4. Hypertension. PAST SURGICAL HISTORY: Dialysis port and hernia. PAST PSYCHIATRIC HISTORY: Negative. SOCIAL HISTORY: No alcohol or tobacco. He lives in a shelter. ALLERGIES: None known. MEDICATIONS: Tylenol, aspirin, atorvastatin, gabapentin, pantoprazole. PHYSICAL EXAMINATION: GENERAL: This is a very frail-appearing gentleman, but looks much older than his chronologic age of 72. He has got very little muscle mass. Looks chronically ill. VITAL SIGNS: His blood pressure 128/71, pulse 104. HEENT: Eyes, sclerae nonicteric. Mouth, mucous membranes moist. NECK: Supple. No lymphadenopathy. LUNGS: Clear. No wheezing, rales, or rhonchi. CARDIAC: Normal S1, normal S2. I do not hear murmur, rub, or gallop. ABDOMEN: Soft, nontender. EXTREMITIES: Warm and dry. No clubbing or cyanosis. He has no edema. He has very little muscle ma ss in his extremities. PERTINENT LABORATORY DATA: His hemoglobin dropped down to 6.9. He received packed red blood cells, 9.4. His creatinine went from 4.05 to 2.88 with dialysis. Troponin is 0.292. Iron 42, ferritin 592 . BNP is 10,898, but he does have renal failure. Echocardiogram revealed ejection fraction of 40%-45% with apex being akinetic. Aortic valve is scler otic, but not stenotic. There is moderate tricuspid insufficiency with pulmonary artery pressure king ng elevated. EKG is sinus rhythm. ASSESSMENT: 1. The patient appears to have underlying coronary disease. 2. End-stage renal disease. 3. Anemia. 4. Appears to have paroxysmal atrial fibrillation. He is in sinus rhythm now, but there is some his tory of atrial fibrillation by report. The patient is extremely frail. PLAN: At this point, we will do the followin. Continue aspirin. 2. Extremely poor candidate for anticoagulation with this degree of anemia and will be very high ris k of worsening his anemia or precipitating bleeding with anticoagulation. 3. The patient is on low-dose carvedilol that appears appropriate. 4. He is on statins. 5. We will go ahead and risk stratify with nuclear medicine stress imaging, but I think he is at thi s point not a candidate for invasive interventions. Certainly, would not be a candidate for cardiac bypass surgery and I think even adding dual-antiplatelet drugs for this gentleman for stenting could be problematic with causing further bleeding. The patient should be treated conservatively. In my o shakira, the prognosis mcc likely is very poor with this constellation of findings.
[2018-01-12] MEDS: Heparin 5,000 UNITS/ML VIAL SC SCH ×3 (12:45→21:45)
[2018-01-12] MEDS: Calcium Acetate 667 MG CAP PO SCH ×3 (12:45→18:11)
[2018-01-12] MEDS: Cilostazol 100 MG TAB PO SCH ×2 (12:45→18:13)
[2018-01-12] MEDS: Carvedilol 3.125 MG TAB PO SCH (12:45)
[2018-01-12] MEDS: Gabapentin 400 MG CAP PO SCH ×3 (12:47→21:45)
[2018-01-12] MEDS: Amoxicillin/Potassium Clav 500 MG TAB PO SCH ×2 (13:13→21:45)
[2018-01-12] MEDS: Aspirin 325 MG TAB PO SCH (13:13)
[2018-01-12] MEDS: Hydroxyurea 500 MG CAP PO SCH (13:14)
[2018-01-12] MEDS: Calcium Carbonate + Vit D 250 MG TAB PO SCH ×2 (13:15→21:45)
[2018-01-12] MEDS: Ferrous Sulfate 325 MG TAB PO SCH (13:15)
[2018-01-12] MEDS: Lisinopril 10 MG TAB PO SCH (13:15)
[2018-01-12] MEDS: Finasteride 5 MG TAB PO SCH (13:16)
[2018-01-12] MEDS: Anagrelide HCl 0.5 MG CAP PO SCH (13:16)
--- NOTE | 2018-01-12 14:05 | PRG ---
DATE OF SERVICE: 01/12/2018 SERVICE: Pulmonary Medicine. INTERVAL HISTORY: The patient is doing outstanding from a respiratory standpoint. He denies having any shortness of breath and has been weaned down to room air. He just missed dialysis and there was no event there. Otherwise, he is returning to his usual state of health. PHYSICAL EXAMINATION: VITAL SIGNS: Afebrile, pulse 101, blood pressure 130/70, respirations 18, and saturation 94% on 4 li ters nasal cannula. GENERAL: The patient is awake, alert, in no apparent distress. LUNGS: Excellent air entry with no prolonged expiratory phase, wheezing, rhonchi or crackles. HEART: Normal rate, regular. ABDOMEN: Soft, nontender, nondistended. Bowel sounds are positive. MUSCULOSKELETAL: No cyanosis or clubbing. There is no pitting in the bilateral lower extremities. NEUROLOGIC: Grossly nonfocal. ASSESSMENT: 1. Acute hypoxic respiratory failure, resolved. 2. End-stage renal disease with massive volume overload, resolving. 3. 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 4. Non-ST elevation myocardial infarction. 5. Systemic inflammatory response syndrome without evidence of infectious process. 6. Anasarca, resolved. DISCUSSION AND PLAN: The patient's oxygen requirements have improved. At this point, he has no furt her requirements for inpatient Pulmonary or Critical Care opinion. I will repeat a white blood cell count tomorrow. If this remains elevated, he may need an additional investigation in the outpatient setting. We will continue to monitor for signs of systemic inflammatory response. If he develops a fever, or other features of this, dupree culture and empiric antibiotics will be considered. Please maria eugenia l with additional questions or concerns moving forward but for now, we will sign off.
--- NOTE | 2018-01-12 14:16 | PQF ---
CLINICAL DOCUMENTATION IMPROVEMENT CLARIFICATION FORM: ICD-10 Updated PLEASE DO AN ADDENDUM TO THE PROGRESS NOTE WITH ANY DOCUMENTATION UPDATES OR ADDITIONS AND CARRY THROUGH TO DC SUMMARY. THANK YOU. DATE: 01/12/18 ATTN: DR. SOLANO Please exercise your independent, professional judgment in responding to the clarification form. Clinical indicators are provided on the bottom of this form for your review Please check appropriate box(s): AMI TYPE: [ ] NSTEMI [ X ] NSTEMI TYPE 2 [ ] DEMAND ISCHEMIA [ ] Other diagnosis [ ] Unable to determine In addition, please specify: Present on Admission (POA): [X ] Yes [ ] No [ ] Unable to determine CLINICAL INDICATORS - SIGNS / SYMPTOMS / LABS ER NOTE: "NSTEMI" H&P: "[id number] MYOCARDIAL INFARCTION TYPE 2 TROPONIN 0.322 / 0.371 / 0.379 RISKS: HYPERTENSION TREATMENT: CARDIOLOGY CONSULT ASPIRIN SERIAL CARDIAC ENZYMES TELEMETRY MONITORING (This form is maintained as a part of the permanent medical record) 2014 [employer]. All Rights Reserved [email or web address] Office: [phone] ROSA
--- NOTE | 2018-01-12 14:34 | PQF ---
CLINICAL DOCUMENTATION IMPROVEMENT CLARIFICATION FORM: ICD-10 Updated PLEASE DO AN ADDENDUM TO THE PROGRESS NOTE WITH ANY DOCUMENTATION UPDATES OR ADDITIONS AND CARRY THROUGH TO DC SUMMARY. THANK YOU. DATE: 01/12/18 ATTN : DR. SOLANO Please exercise your independent, professional judgment in responding to the clarification form. Clinical indicators are provided on the bottom of this form for your review Please check appropriate box(s) to clarify if the following diagnosis has been ruled in or ruled out: PNEUMONIA [ ] Ruled in diagnosis [ ] Continue to treat [ ] Resolved [ X] Ruled out diagnosis [ ] Cannot rule out diagnosis [ ] Other diagnosis [ ] Unable to determine In addition, please specify: Present on Admission (POA): [ ] Yes [ X ] No [ ] Unable to determine For continuity of documentation, please document condition throughout progress notes and discharge summary. Thank You. CLINICAL INDICATORS - SIGNS / SYMPTOMS / LABS ER NOTE: "PNEUMONIA" H&P 01/10: "POSSIBLE PNEUMONIA, SEEN ON THE CT, GIVEN PRESENTATION WITH FEVER... " WBC 27.7 PULSE 110 BP 98/57 TEMP 101.2 INITIAL SAT 75% RISKS: USP RESIDENT MULTIPLE COMORBIDITIES TREATMENT: IV LEVAQUIN (ER) IV VANCOMYCIN (ER-PRESENT) IV CEFEPIME (ER) AUGMENTIN (01/10-PRESENT) PULMONARY CONSULT (This form is maintained as a part of the permanent medical record) 2014 [employer]. All Rights Reserved [email or web address] Office: [phone] [facility] CENTERJose
--- NOTE | 2018-01-12 15:44 | NM ---
NUCLEAR MEDICINE CARDIAC STRESS TEST WITH EJECTION FRACTION: HISTORY: Atrial fibrillation. COMPARISON: None. TECHNIQUE: An adenosine stress test was performed. Stress and rest were performed after the intravenous adminis tration of 27 and 9 millicuries technetium 99m sestamibi. FINDINGS: There is a scar at the apex of the septum of the left ventricle. No definite reversible ischemia. There is global hypokinesis towards the apex. Calculated ejection fraction is 38%. IMPRESSION: 1. Scar at the apex of the left ventricular septum. 2. Poor ejection fraction of 38%. 3. Global hypokinesis towards the apex. POS: [facility]
--- NOTE | 2018-01-12 17:30 | PDOC.PN ---
- Subjective Encounter Start Date: 01/12/18 Encounter Start Time: 17:28 Mr. Childs was seen today in follow-up. He says he is feeling better. His breathing has improved. He also says the diarrhea has slowed down. - Objective Resuscitation Status: Resuscitation Status FULL:Full Resuscitation MAR Reviewed: Yes Vital Signs & Weight: Vital Signs (12 hours) Temp Pulse Resp BP BP Pulse Ox 01/12/18 15:35 97.6 F 104 H 12 129/69 92 L 01/12/18 13:15 163/85 H 01/12/18 12:55 97.5 F L 106 H 20 163/85 H 01/12/18 08:55 97 01/12/18 07:28 97.5 F L 106 H 20 130/70 94 L Weight Admit Weight 129 lb Weight 126 lb 5 oz I&O: 01/11/18 01/12/18 01/13/18 06:59 06:59 06:59 Intake Total 860 Output Total 1500 Balance -640 Result Diagrams: 01/11/18 03:14 01/11/18 03:14 Phys Exam - Physical Examination HEENT: PERRLA Respiratory: no wheezing, no rales, no rhonchi, clear to auscultation bilateral Cardiovascular: RRR, no significant murmur, no rub Gastrointestinal: soft, non-tender, positive bowel sounds Musculoskeletal: no edema Dx/Plan (1) Acute respiratory failure Code(s): J96.00 - ACUTE RESPIRATORY FAILURE, UNSP W HYPOXIA OR HYPERCAPNIA Status: Acute (2) CHF exacerbation Code(s): I50.9 - HEART FAILURE, UNSPECIFIED Status: Acute (3) Diarrhea Code(s): R19.7 - DIARRHEA, UNSPECIFIED Status: Acute (4) Sepsis Code(s): A41.9 - SEPSIS, UNSPECIFIED ORGANISM Status: Acute (5) Elevated troponin Code(s): R74.8 - ABNORMAL LEVELS OF OTHER SERUM ENZYMES Status: Acute (6) End stage renal disease on dialysis Code(s): N18.6 - END STAGE RENAL DISEASE; Z99.2 - DEPENDENCE ON RENAL DIALYSIS Status: Acute (7) Atrial fibrillation Code(s): I48.91 - UNSPECIFIED ATRIAL FIBRILLATION Status: Acute (8) Hypertension Code(s): I10 - ESSENTIAL (PRIMARY) HYPERTENSION Status: Acute - Plan * Acute on chronic respiratory failure- improved * Chronic systolic heart failure- discussed with Dr. Simms- will treat him medically * Diarrhea- resolving- will place him on a probiotic * Leukocytosis- I spoke with Dr. Durham regarding his elevated WBC cpunt. He has a history of Myleoproliferative disorder, and his baseline WBC count runs between 20-30K. He alos has a chronic anemia, and his HGB is usually around 7.0 , and 9.0 is considered high. He also says his platelet count had been in the millions prior to starting Anagrelide. He also recently took him OFF Hydroxyurea. * Will discontinue the Hydroxyurea * He had been in Rehab before being admitted to the hospital, and he does not want to go back. He says his sister who had helped care for him was out of town , when he was placed in Rehab, but she is back now. Will consult PT/OT, and see if he is safe to go home with assistance. .
[2018-01-12] MEDS: Carvedilol 6.25 MG TAB PO SCH (18:12)
--- NOTE | 2018-01-12 18:54 | PRG ---
DATE OF SERVICE: 01/12/2018 SUBJECTIVE: Mr. Childs has undergone stress testing today. The patient is very fatigued. He looks again very frail. He is not having chest pain. He says he does not feel like his breathing is totally normal. OBJECTIVE: VITAL SIGNS: His blood pressure is 163/85, pulse is 104, sinus. LUNGS: Clear. CARDIAC: Tachycardic for rest. ABDOMEN: Soft, nontender. EXTREMITIES: No edema. DIAGNOSTIC DATA: The nuclear medicine stress test revealed ejection fraction 38% with a fixed defect of the apex compatible with scar. ASSESSMENT: 1. Previous scar of the apex. 2. Ejection fraction 38%. 3. End-stage renal disease. 4. Very frail. 5. Anemia, recurrent. 6. Hypercholesterolemia. PLAN: 1. Increase carvedilol to 6.25 mg twice a day, go to 12.5 mg twice a day tomorrow if he tolerates. 2. Would recommend medical therapy in this gentleman very frail with a history of anemia, end-stage renal disease. Long-term prognosis suspected fortunately is poor. We will try to optimize this situ ation medically. No family around yesterday or today when I came by.
[2018-01-12] MEDS ORDERED: ADENOSINE 60 MG/20 ML VIAL ONE (19:25)
[2018-01-12] MEDS: Atorvastatin Calcium 40 MG TAB PO SCH (21:45)
[2018-01-13 05:28] LABS: Anion Gap 16 mmol/L (10-20); BUN (Urea Nitrogen) 45 mg/dL (8.4-25.7); Calc. Creatinine Clearance 11 mL/min (70-130); Calcium 7.6 mg/dL (7.8-10.44); Carbon Dioxide 24 mmol/L (23-31); Chloride 99 mmol/L (98-107); Estimated GFR-MDRD 12; Glucose 85 mg/dL (83-110); Potassium 3.9 mmol/L (3.5-5.1); Sodium 135 mmol/L (136-145)
[2018-01-13 06:55] LABS: Band 21 % (5-11); Eosinophils 2 % (0-10); Hemoglobin 9.2 g/dL (14.0-18.0); Lymphocytes 4 % (21-51); MDiff Complete? YES; Mean Corpuscular HGB CONC 31.7 g/dL (32.0-36.0); Mean Corpuscular Hemoglobin 31.3 pg (27.0-31.0); Mean Corpuscular Volume 98.6 fL (78.0-98.0); Mean Platelet Volume 8.5 fL (7.4-10.4); Metamyelocyte 1 % (0-0); Monocytes 6 % (0-10); Neutrophil 66 % (42-75); Platelet Count 233 thou/uL (130-400); RBC Distribution Width 15.9 % (11.5-14.5); Red Blood Cell (RBC) Count 2.96 mill/uL (4.70-6.10); White Blood Cell (WBC) Count 26.5 thou/uL (4.8-10.8)
[2018-01-13 07:16] LABS: Hemoglobin 9.2 g/dL (14.0-18.0); Mean Corpuscular HGB CONC 31.4 g/dL (32.0-36.0); Mean Corpuscular Hemoglobin 31.1 pg (27.0-31.0); Mean Corpuscular Volume 98.9 fL (78.0-98.0); Mean Platelet Volume 8.6 fL (7.4-10.4); Platelet Count 230 thou/uL (130-400); RBC Distribution Width 16.3 % (11.5-14.5); Red Blood Cell (RBC) Count 2.97 mill/uL (4.70-6.10); White Blood Cell (WBC) Count 26.1 thou/uL (4.8-10.8)
[2018-01-13 08:40] LABS: Band 26 % (5-11); Eosinophils 3 % (0-10); Lymphocytes 5 % (21-51); MDiff Complete? YES; Metamyelocyte 1 % (0-0); Monocytes 8 % (0-10); Myelocyte 1 % (0-0); Neutrophil 56 % (42-75); PLT Morphology Comment Appears Adequate; RBC Morphology Normal
[2018-01-13] MEDS: Calcium Acetate 667 MG CAP PO SCH ×3 (09:25→17:41)
[2018-01-13] MEDS: Carvedilol 6.25 MG TAB PO SCH ×2 (09:25→17:41)
[2018-01-13] MEDS: Cilostazol 100 MG TAB PO SCH ×2 (09:25→17:39)
[2018-01-13] MEDS: Heparin 5,000 UNITS/ML VIAL SC SCH ×3 (09:25→20:46)
[2018-01-13] MEDS: Gabapentin 400 MG CAP PO SCH ×3 (09:25→20:46)
[2018-01-13] MEDS: Amoxicillin/Potassium Clav 500 MG TAB PO SCH ×2 (12:37→20:46)
[2018-01-13] MEDS: Anagrelide HCl 0.5 MG CAP PO SCH (12:37)
[2018-01-13] MEDS: Aspirin 325 MG TAB PO SCH (12:37)
[2018-01-13] MEDS: Ferrous Sulfate 325 MG TAB PO SCH (12:37)
[2018-01-13] MEDS: Finasteride 5 MG TAB PO SCH (12:38)
[2018-01-13] MEDS: Lisinopril 10 MG TAB PO SCH (12:38)
[2018-01-13] MEDS: Calcium Carbonate + Vit D 250 MG TAB PO SCH ×2 (12:38→20:45)
[2018-01-13] MEDS: Hydroxyurea 500 MG CAP PO SCH (12:38)
--- NOTE | 2018-01-13 12:41 | PDOC.PN ---
- Subjective Encounter Start Date: 01/13/18 Encounter Start Time: 12:39 Mr. Traore was seen today in follow-up. He does not have any complaints. He says the diarrhea has improved, and he is not short of breath. - Objective Resuscitation Status: Resuscitation Status FULL:Full Resuscitation MAR Reviewed: Yes Vital Signs & Weight: Vital Signs (12 hours) Temp Pulse Resp BP BP Pulse Ox 01/13/18 09:25 123/57 L 01/13/18 07:22 98 01/13/18 07:02 97.9 F 97 18 118/57 L 100 01/13/18 03:41 99.6 F 101 H 19 119/61 100 Weight Admit Weight 129 lb Weight 122 lb I&O: 01/12/18 01/13/18 01/14/18 06:59 06:59 06:59 Intake Total 580 Balance 580 Result Diagrams: 01/13/18 06:40 01/13/18 03:46 Phys Exam - Physical Examination HEENT: PERRLA Respiratory: no wheezing + rales at the bases Cardiovascular: RRR, no significant murmur, no rub Gastrointestinal: soft, non-tender, positive bowel sounds Musculoskeletal: no edema Dx/Plan (1) Acute respiratory failure Code(s): J96.00 - ACUTE RESPIRATORY FAILURE, UNSP W HYPOXIA OR HYPERCAPNIA Status: Acute (2) CHF exacerbation Code(s): I50.9 - HEART FAILURE, UNSPECIFIED Status: Acute (3) Diarrhea Code(s): R19.7 - DIARRHEA, UNSPECIFIED Status: Acute (4) Sepsis Code(s): A41.9 - SEPSIS, UNSPECIFIED ORGANISM Status: Acute (5) Elevated troponin Code(s): R74.8 - ABNORMAL LEVELS OF OTHER SERUM ENZYMES Status: Acute (6) End stage renal disease on dialysis Code(s): N18.6 - END STAGE RENAL DISEASE; Z99.2 - DEPENDENCE ON RENAL DIALYSIS Status: Acute (7) Atrial fibrillation Code(s): I48.91 - UNSPECIFIED ATRIAL FIBRILLATION Status: Acute (8) Hypertension Code(s): I10 - ESSENTIAL (PRIMARY) HYPERTENSION Status: Acute (9) Myeloproliferative disease Code(s): D47.1 - CHRONIC MYELOPROLIFERATIVE DISEASE Status: Acute - Plan * Acute on chronic systolic heart failure- compensated * Diarrhea- improved- ? etiology- patient says he had a Colonoscopy 4 years ago which was negative * ESRD- stable * Myeloproliferative disorder- stable- His WBC count is at baseline * Hopefully home today, once he is evaluated by PT .
--- NOTE | 2018-01-13 19:58 | PRG ---
DATE OF SERVICE: 01/13/2018 SUBJECTIVE: Patient was seen and examined today at dialysis, doing very well, noted with the followi ng vital signs. PHYSICAL EXAMINATION: VITAL SIGNS: Afebrile, temperature 97.9, pulse 97, respiratory rate of 18, blood pressure 118/57, O2 sat of 100%. HEENT: Unremarkable with moist oral mucosa. No conjunctival injection or icterus. NECK: Supple. CARDIOVASCULAR SYSTEM: First and second heart sounds were heard. RESPIRATORY SYSTEM: Clear to auscultation. DIGESTIVE SYSTEM: Revealed a benign abdomen with positive bowel sounds. EXTREMITIES: No peripheral edema. SKIN: No new gross rash. LYMPHATICS: No peripheral lymphadenopathy. IMPRESSION: 1. End-stage renal disease, hemodialysis dependent. 2. Severe anemia, status post blood transfusion with stable hemoglobin. 3. Myeloproliferative disorder. PLAN: 1. The patient to continue with hemodialysis as per his normal schedule of Friday, , and . 2. Further management to be dependent on the clinical course. From the renal standpoint, the patien t is due for discharge.
[2018-01-13] MEDS: Atorvastatin Calcium 40 MG TAB PO SCH (20:46)
[2018-01-14] MEDS: Heparin 5,000 UNITS/ML VIAL SC SCH ×2 (08:44→15:17)
[2018-01-14] MEDS: Anagrelide HCl 0.5 MG CAP PO SCH (08:45)
[2018-01-14] MEDS: Calcium Carbonate + Vit D 250 MG TAB PO SCH (08:45)
[2018-01-14] MEDS: Amoxicillin/Potassium Clav 500 MG TAB PO SCH (08:45)
[2018-01-14] MEDS: Cilostazol 100 MG TAB PO SCH ×2 (08:45→15:17)
[2018-01-14] MEDS: Hydroxyurea 500 MG CAP PO SCH (08:46)
[2018-01-14] MEDS: Gabapentin 400 MG CAP PO SCH ×2 (08:46→15:17)
[2018-01-14] MEDS: Lisinopril 10 MG TAB PO SCH (08:46)
[2018-01-14] MEDS: Carvedilol 6.25 MG TAB PO SCH (08:46)
[2018-01-14] MEDS: Calcium Acetate 667 MG CAP PO SCH ×2 (08:46→12:11)
[2018-01-14] MEDS: Aspirin 325 MG TAB PO SCH (08:47)
[2018-01-14] MEDS: Ferrous Sulfate 325 MG TAB PO SCH (08:47)
[2018-01-14] MEDS: Finasteride 5 MG TAB PO SCH (08:47)
--- NOTE | 2018-01-14 09:12 | PDOC.PN ---
- Subjective Encounter Start Date: 01/14/18 Encounter Start Time: 09:11 Ms. Childs was seen today in follow-up of acute respiratory failure. He is feeling better. He denies any further diarrhea, and he is breathing better. - Objective Resuscitation Status: Resuscitation Status FULL:Full Resuscitation MAR Reviewed: Yes Vital Signs & Weight: Vital Signs (12 hours) Temp Pulse Resp BP Pulse Ox 01/14/18 08:42 99 01/14/18 07:45 98.7 F 100 24 H 119/60 99 01/14/18 07:44 99 01/14/18 03:46 99.5 F 93 14 114/55 L 99 Weight Admit Weight 129 lb Weight 125 lb 11.2 oz I&O: 01/13/18 01/14/18 01/15/18 06:59 06:59 06:59 Intake Total 580 1040 Output Total 3700 Balance 580 -2660 Result Diagrams: 01/13/18 06:40 01/13/18 03:46 Phys Exam - Physical Examination HEENT: PERRLA Respiratory: no wheezing + rales at the rales Cardiovascular: RRR, no significant murmur, no rub Gastrointestinal: soft, non-tender, positive bowel sounds Musculoskeletal: edema present Dx/Plan (1) Acute respiratory failure Code(s): J96.00 - ACUTE RESPIRATORY FAILURE, UNSP W HYPOXIA OR HYPERCAPNIA Status: Acute (2) CHF exacerbation Code(s): I50.9 - HEART FAILURE, UNSPECIFIED Status: Acute (3) Diarrhea Code(s): R19.7 - DIARRHEA, UNSPECIFIED Status: Acute (4) Sepsis Code(s): A41.9 - SEPSIS, UNSPECIFIED ORGANISM Status: Acute (5) Elevated troponin Code(s): R74.8 - ABNORMAL LEVELS OF OTHER SERUM ENZYMES Status: Acute (6) End stage renal disease on dialysis Code(s): N18.6 - END STAGE RENAL DISEASE; Z99.2 - DEPENDENCE ON RENAL DIALYSIS Status: Acute (7) Atrial fibrillation Code(s): I48.91 - UNSPECIFIED ATRIAL FIBRILLATION Status: Acute (8) Hypertension Code(s): I10 - ESSENTIAL (PRIMARY) HYPERTENSION Status: Acute (9) Myeloproliferative disease Code(s): D47.1 - CHRONIC MYELOPROLIFERATIVE DISEASE Status: Acute - Plan * Acute on chronic systolic heart failure- compensated * Discussed with Dr. Simms- will treat him medically * Diarrhea- resolved- ? etiology- he can have outpatient GI work-up if needed- will continue the Probiotic * ESRD- stable * He can be discharged back to Rehab.
--- NOTE | 2018-01-14 10:24 | PRG ---
DATE OF SERVICE: 01/14/2018 Mr. Childs is sitting in bed, eating some eggs and a biscuit, tolerating that well. No chest pain or pressure. PHYSICAL EXAMINATION: VITAL SIGNS: Blood pressure 119/60, pulse is in the 90s. LUNGS: Clear. CARDIAC: Normal S1 and normal S2. ABDOMEN: Soft, nontender. EXTREMITIES: He does not have edema. PERTINENT LABORATORIES: Hemoglobin is 9.2 that is stable; it was 6.9 before transfusion. His platel et count is 230; he does have a history of high platelet counts as high as 1028 previously. The james ent looks very frail as outlined and noted before. ASSESSMENT: 1. Coronary artery disease. 2. Depressed left ventricular function. 3. End-stage renal disease. 4. Overall, very poor health, looks almost cachectic and I am glad to see him eating. PLAN: I would recommend conservative medical therapy. I would not recommend defibrillator implantat ion. I think the risk would outweigh the benefit in this frail, elderly gentleman, on dialysis. The risk of infection would be increased and risk of complications will be increased. Long-term prognos is does not appear to be favorable. The goal of therapy should be to try to improve quality of life at this time.
--- NOTE | 2018-01-14 13:57 | DIS ---
PRIMARY CARE PHYSICIAN: Dr. Coelho DATE OF ADMISSION: 01/10/2018 DATE OF DISCHARGE: 01/14/2018 DISCHARGE DISPOSITION: [facility] DISCHARGE DIAGNOSES: 1. Acute on chronic respiratory failure secondary to a congestive heart failure exacerbation. 2. Acute on chronic systolic heart failure. 3. End-stage renal disease on dialysis. 4. History of atrial fibrillation. 5. Hypertension. 6. Hyperlipidemia. 7. Chronic diarrhea, resolved. 8. Myeloproliferative disorder. 9. Benign prostatic hypertrophy. DISCHARGE MEDICATIONS: Include aspirin 81 mg daily, carvedilol 6.25 mg twice daily, anagrelide 0.5 mg daily, Lipitor 40 mg daily, PhosLo 1334 mg t.i.d., calcium plus vitamin D 2000 units daily, cilost azol 50 mg twice a day, cyclobenzaprine 5 mg t.i.d. as needed, Proscar 5 mg daily, Neurontin 400 mg t .i.d. Hydroxyurea was discontinued. Lisinopril 10 mg daily, multivitamin once a day, Protonix 40 mg twice daily and prednisolone acetate eyedrops daily. CODE STATUS: Full code. ALLERGIES: No known drug allergies. PROCEDURES DONE DURING ADMISSION: The patient had a CT angiogram of the chest in which there was no evidence of pulmonary embolism. There was some patchy diffuse alveolar infiltrates most suggestive o f pulmonary edema, a right adrenal mass and there was evidence of cholelithiasis. The patient also h ad a nuclear stress test in which there was some global hypokinesis and a scar at the apex of the lef t ventricular septum and a poor ejection fraction of 38%. He also had an echocardiogram which the ej ection fraction was estimated at 40-45% and there was an akinetic apex, some moderate tricuspid regur gitation. HOSPITAL COURSE: Mr. Childs is a pleasant 72-year-old gentleman who was admitted to the hospital after he was having difficulty with breathing. He also had noted some tachycardia as well. He was a dmitted for presumed pneumonia. He was evaluated by our manager transfusion head golf professional and it was felt that h is symptoms were most likely related to volume and not necessarily an infectious process. He had antolin ginally been placed on IV antibiotics. These were discontinued. An echocardiogram was obtained due to concerns for volume overload and it appeared as if he had not had an echo in the last few years, a t least in our system. Echocardiogram revealed an ejection fraction which was diminished at 40-45%. For this reason, Cardiology was consulted as the patient also had an elevated troponin as well. He underwent nuclear stress test which was negative, but showed significant scar in the apex. Given his end-stage renal disease and poor functional status, Dr. Simms did not believe that doing a cardiac catheterization or any invasive procedures would benefit the patient and that he would best be served by treating him medically. A beta juan was added to his regimen. He was already on an JAYDA inhib itor. He was also placed on a low dose aspirin. Volume status will be managed with dialysis. The p atient also had some diarrhea which he was complaining of. A C. diff was done which was negative. H is diarrhea actually improved during the course of his hospital stay. It is unclear whether or not t his was diet related or possibly due to antibiotics and a disruption in his normal bacterial kenzie. He had been placed on a probiotic and since the last few days of his hospital stay the diarrhea had r esolved. He can have a GI workup as an outpatient. He told me he had a colonoscopy about 4 years ag o which was negative. The patient will therefore be discharged. Also, the patient had an elevated w gladys blood cell count, this was one of the reasons it was thought that he could have an infectious pr ocess; however, I spoke with Dr. Durham who sees him on a regular basis and he normally has elevate d white blood cell count, somewhere between 20,000 and 30,000, which is baseline for him. He has a d iagnosis of myeloproliferative disorder. He also told me that his hemoglobin normal for him was arou nd 8 and that 9 was actually high for him. The patient will be discharged home to the [facility] today.
[2018-01-14 16:21] VITALS: BP 97/51; TEMP 98.2
--- NOTE | 2018-01-15 11:52 | PQF ---
S[facility] Counselor Aid Crystal Reports Winform SALLY Young TONI MD [id number] [facility]256 [id number] CLINICAL DOCUMENTATION CLARIFICATION FORM: POST DISCHARGE Addendum to original discharge summary date: ____ Late entry note date: __ Please exercise your independent, professional judgment in responding to the clarification form. Clinical indicators are provided on the bottom of this form for your review Please check appropriate box(es): [ ] Sepsis due to: (Pna, UTI, gangrenous gall bladder, etc.) Due to: [ ] Device (please specify) [ ] Implant [ ] Graft [ ] Infusion [ ] SIRS due to non-infectious process (please specify etiology) [ ] with organ dysfunction [ ] without organ dysfunction [ ] Severe sepsis with acute organ dysfunction of: (Examples: respiratory failure, encephalopathy, acute kidney failure, other) [ ] Septic Shock [ ] Localized infection without sepsis [ ] Other diagnosis [ ] Unable to determine [ X ] Sepsis ruled out In addition, please specify: Present on Admission (POA): [ X ] Yes [ ] No [ ] Unable to determine For continuity of documentation, please document condition throughout progress notes and discharge summary. Thank You. CLINICAL INDICATORS - SIGNS / SYMPTOMS / LABS Altered mental status Fever or hypothermia (<96.8 F/36 C or > 100.4 F/38C) Respiratory rate >20/min, Hypoxemia, SBP <100mmHg Metabolic acidosis Lactic Acid >2mmol/L, Increase BUN/Abrasive Grader, decrease GFR, coag abnormalities, thrombocytopenia-plts <100k Oliguria Shock-hypotension resistant to IV fluid boluses WBC count (>12,000/mm^4 or <4000/mm^3 or 10% neuts, 10% bands) Hyperglycemia in absence of diabetes mellitus Positive blood cultures RISK FACTORS Acute on chronic resp. failure Hypertensive acute on chronic systolic heart failure Pneumonia Surgery / surgical instrumentation / trauma Ruptured/perforated bowel, ruptured appendix Immunosuppression Advancing Age TREATMENTS: Initiation Sepsis Protocol ICU Daily CBC Blood/sputum/wound cultures ID Consult IV antibiotics - broad spectrum IV ?uids Vasopressors, meds (This form is maintained as a part of the permanent medical record) 2014 [place]. All Rights Reserved Minerva [email or web address] [phone] MTDD
--- NOTE | 2018-01-17 12:42 | EKG ---
Test Reason : Blood Pressure : / mmHG Vent. Rate : 117 BPM Atrial Rate : 117 BPM P-R Int : 124 ms QRS Dur : 080 ms QT Int : 284 ms P-R-T Axes : -21 -33 029 degrees QTc Int : 396 ms Sinus tachycardia Left axis deviation Abnormal ECG Confirmed by OMAR OCHOA ([id number]), assignment desk editor PARAS BOND ([id number]) on 01/17/2018 12:42:21 PM Referred By: Confirmed By:OMAR OCHOA
--- NOTE | 2018-01-21 14:15 | STRESS ---
Acquisition Time: 2018-01-12 11:59:49 Total Exercise Time: 00:04:00 Test Indications: CHEST PAIN Medications: Protocol: ADENOSINE Max HR: 111 BPM 76% of Pred: 146 BPM Max BP: 150/078 mmHG Max Work Load: 1.0 METS RESTING ECG: SINUS TACHYCARDIA AT 103 BPM WITH LEFT AXIS DEVIATION AND POOR R-WAVE PROGRESSION; OLD SEPTAL MD SYMPTOMS: NONE NORMAL BP RESPONSE ECTOPY: RARE PAC'S AND PVC'S ECG STRESS: NO SIGNIFICANT CHANGES INTERPRETATION: NEGATIVE ECG/AWAIT NUCLEAR IMAGES FOR DEFINITIVE DIAGNOSIS Confirmed by DENIS POE ([id number]) on 01/21/2018 2:14:51 PM Referred By: MD Narciso SIMMONS Confirmed By:DENIS POE
== END 2018-01-14 16:20 | DRG 280 ==
LOC: ERS 20:50 → IMCU/EMU 01-10 01:26 → 2NO 01-10 20:14
PROVIDERS: ADMIT Hospitalist; ATTEND Hospitalist
PROC: 30233N1 Transfusion of Nonautologous Red Blood Cells into Peripheral Vein, Percutaneous Approach (ICD-10-PCS; principal; 2018-01-10)
PROC: 5A1D70Z Performance of Urinary Filtration, Intermittent, Less than 6 Hours Per Day (ICD-10-PCS; 2018-01-10)
PROC: 5A1D70Z Performance of Urinary Filtration, Intermittent, Less than 6 Hours Per Day (ICD-10-PCS; 2018-01-13)
DX: I13.2 Hypertensive heart and chronic kidney disease with heart failure and with stage 5 chronic kidney disease, or end stage renal disease (principal); J96.21 Acute and chronic respiratory failure with hypoxia; I21.A1 Myocardial infarction type 2; N18.6 End stage renal disease; J18.9 Pneumonia, unspecified organism; I50.23 Acute on chronic systolic (congestive) heart failure; C94.6 Myelodysplastic disease, not elsewhere classified; D50.9 Iron deficiency anemia, unspecified; E78.00 Pure hypercholesterolemia, unspecified; E87.6 Hypokalemia; E78.5 Hyperlipidemia, unspecified; K52.9 Noninfective gastroenteritis and colitis, unspecified; N40.0 Benign prostatic hyperplasia without lower urinary tract symptoms; I48.0 Paroxysmal atrial fibrillation; Z99.2 Dependence on renal dialysis; Z79.01 Long term (current) use of anticoagulants; Z87.891 Personal history of nicotine dependence
CPT/HCPCS: 36415; 36430; 71045; 71275; 78452; 80048; 80053; 81003; 81015; 82274; 82553; 82728; 83540; 83550; 83605; 83735; 83880; 84484; 85025; 86706; 86850; 86900; 86901; 87040; 87086; 87324; 87340; 87449; 90935; 93005; 93017; 93306; 93798; 94760; 96365; 96367; 96372; 96375; A9500; G0257; G8978-GP-CL; G8979-GP-CJ; G8987-GO-CJ; G8988-GO-CI; J0153; J0692; J1642; J1644; J1956; J3370; J7050; P9016

== ENCOUNTER 2018-03-24 09:35 | Outpatient (CLI) | payer MEDICARE, MEDICAID ==
--- NOTE | 2018-03-24 12:05 | ULT ---
VENOUS DUPLEX SONOGRAM BILATERAL UPPER EXTREMITY WITH VEIN MAPPING: History: Renal failure. Need for long-term dialysis access. FINDINGS: Good color and spectral doppler flow within each internal jugular, subclavian, axillary, and brachial vein. Measurements are as follows: RIGHT UPPER EXTREMITY BRACHIAL ARTERY: 5 mm RADIAL ARTERY: 3 mm ULNAR ARTERY: 3 mm CEPHALIC VEIN Proximal Arm: 1 mm Mid Arm: 1 mm Distal Arm: 1 mm Antecubital Fossa: 1 mm Proximal Forearm: 1 mm Mid Forearm: 1 mm Distal Forearm: 1 mm BASILIC VEIN Proximal Arm: 2 mm Mid Arm: 2mm Distal Arm: 2 mm Antecubital Fossa: 2 mm Proximal Forearm: 1mm Mid Forearm: 1 mm Distal Forearm: 1 mm LEFT UPPER EXTREMITY BRACHIAL ARTERY: 4 mm RADIAL ARTERY: 2 mm ULNAR ARTERY: 2 mm CEPHALIC VEIN Proximal Arm: 1 mm Mid Arm: 1 mm Distal Arm: 1 mm Antecubital Fossa: 1 mm Proximal Forearm: thrombosed Mid Forearm: thrombosed Distal Forearm: thrombosed BASILIC VEIN Proximal Arm: 2 mm Mid Arm: 2 mm Distal Arm: 2 mm Antecubital Fossa: 2 mm Proximal Forearm: 1 mm Mid Forearm: 1 mm Distal Forearm: 1 mm IMPRESSION: Deep venous system is patent. Cephalic and basilic measurements and arterial measurements are as deta iled above. There is thrombosis of the left cephalic vein at the level of the forearm. POS: [facility]
== END 2018-03-24 09:36 | disposition home or self-care (01) ==
LOC: ULT 09:35
PROVIDERS: ATTEND Internal Medicine Nephrology
DX: Z01.818 Encounter for other preprocedural examination (principal); I82.612 Acute embolism and thrombosis of superficial veins of left upper extremity
CPT/HCPCS: 93970; G0365

== ENCOUNTER 2018-06-04 11:51 | Emergency (ER) | payer MEDICARE, MEDICAID | END 2018-06-04 13:02 | disposition home or self-care (01) | LOC: ERS 11:51 | DX: Z04.1 Encounter for examination and observation following transport accident (principal); M54.5 Low back pain; I10 Essential (primary) hypertension | CPT/HCPCS: 99283 ==

== ENCOUNTER 2018-06-07 17:08 | Inpatient (IN) | payer MEDICARE, MEDICAID ==
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
[2018-06-07] MEDS ORDERED: Guaifenesin DM 100-10/5 ML UDCUP PO PRN (20:07)
[2018-06-07] MEDS ORDERED: Nitroglycerin 0.4 MG TAB (25 Tab Bottle) PO PRN (20:07)
[2018-06-07] MEDS ORDERED: Senokot S 8.6-50 MG TAB PO PRN (20:07)
[2018-06-07 21:30] LABS: Troponin I 0.022 ng/mL (< 0.028)
--- NOTE | 2018-06-07 21:39 | HP ---
REASON FOR ADMISSION: Volume overload. Chest pain. HISTORY OF PRESENTING ILLNESS: The patient gives history of unable to sleep or lay flat from yesterday evening. He has been sitting up. He also developed chest pain, which was retrosternal with no radiation as such. The pain was 3/10 to 4/10 in intensity and was more of a heaviness than pain as such. No complaints of cough or expectoration. No complaints of fever. Please note, the patient is not a very good historian. He says he gets dialyzed on Friday, Friday, and Fridays. He has been on dialysis for last seven months now. He lives with his daughter, who has cerebral palsy. He has a sister, who comes and helps them out. PAST MEDICAL AND SURGICAL HISTORY: History of end-stage renal disease, on hemodialysis for the last seven months. He does not know who his senior quality engineer is. History of CHF with ejection fraction of around 38%. Nuclear stress test done in December of this year showed scar at the apex of the left ventricular septum with global hypokinesis. Echo showed EF of 40% to 45%. PA systolic pressure was 54. Chronic anemia due to renal disease and likely due to leukemia. History of atrial fibrillation, hypertension, dyslipidemia, peripheral vascular disease with left lower extremity vascular surgery scar, depression, inguinal hernia repair on both sides, cataract surgery, and has right IJ hemodialysis tunneled catheter. CURRENT MEDICATIONS: The patient is on, 1. Anagrelide 0.5 mg p.o. three times daily. 2. Calcitonin nasal spray 2000 units, unclear of the frequency. 3. Multivitamin one tab daily. 4. Aspirin 81 mg daily. 5. Plavix 75 mg p.o. daily. 6. Cilostazol 50 mg twice daily. 7. Hydroxyurea 500 mg daily. 8. Lisinopril 5 mg daily. 9. Coreg 12.5 mg twice daily. 10. Imdur extended release 30 mg daily. 11. Paxil 10 mg daily. ALLERGIES: NO KNOWN DRUG ALLERGIES. PERSONAL HISTORY: Does not abuse alcohol or drugs. No history of smoking. FAMILY HISTORY: Mother in her 70s and has had history of myocardial infarction. Father at the age of 78 years and he had coronary artery disease as well. Code status is do not resuscitate and I have discussed with the patient. Power of regulatory attorney is his sister, Ms. Veda Thrasher. The patient has a daughter. Her name is Karo Childs, but she has history of cerebral palsy and is bed-bound. REVIEW OF SYSTEMS: CONSTITUTIONAL: Negative for weight loss or gain, ability to conduct usual activities. SKIN: Negative for rash, itching. EYES: Negative for double vision, pain. ENT/MOUTH: Negative for nose bleeding, neck stiffness, pain, tenderness. CARDIOVASCULAR: Negative for palpitations, dyspnea on exertion, orthopnea. RESPIRATORY: Negative for shortness of breath, wheezing, cough, hemoptysis, fever or night sweats. GASTROINTESTINAL: Negative for poor appetite, abdominal pain, heartburn, nausea , vomiting, constipation, or diarrhea. GENITOURINARY: Negative for urgency, frequency, dysuria, nocturia. MUSCULOSKELETAL: Negative for pain, swelling. NEUROLOGIC/PSYCHIATRIC: Negative for anxiety, depression. ALLERGY/IMMUNOLOGIC: Negative for skin rash, bleeding tendency. PHYSICAL EXAMINATION: GENERAL: The patient is a 72-year-old male, who is currently not in any acute distress. VITAL SIGNS: Blood pressure 164/80, pulse 82 per minute, respiratory rate 14 per minute, temperature 98.9 degrees Fahrenheit, and saturating 98% on 2 L nasal cannula. NECK: Supple. No elevated JVD. HEENT: Eyes, extraocular muscles intact. Pupils reacting to light. Oral cavity, mucous membranes are moist. No exudates or congestion. CARDIOVASCULAR SYSTEM: S1 and S2 heard. Regular rhythm. RESPIRATORY SYSTEM: Air entry 1+ bilateral, scattered rales in the infrascapular area. ABDOMEN: Soft. Bowel sounds heard. No tenderness, rigidity, or guarding. EXTREMITIES: No peripheral edema or calf tenderness. VASCULAR SYSTEM: Peripheral pulses 1+ bilateral. No ischemic ulcerations or gangrene. CENTRAL NERVOUS SYSTEM: No gross focal deficits noted. The patient is alert, awake, and oriented. PSYCHIATRIC SYSTEM: The patient's mood is euthymic. No hallucinations or delusions. LABORATORY DATA: Please note, all his labs were done at [facility]. A repeat troponin was done here, which is negative. Has a white count of 30, H and H of 8 and 28, and platelet count 253. Sodium 136, potassium 4.3, serum bicarb 26, BUN 42, creatinine 3.2, serum glucose 85, albumin is 3.0, MCV 105, and BNP was more than 5000 pg/mL. Chest x-ray done showed pulmonary vascular congestion with cardiomegaly. EKG done shows normal sinus rhythm at 74 beats per minute. CLINICAL IMPRESSION AND PLAN: The patient will be admitted to telemetry for volume overload. He is due for dialysis tomorrow. I have discussed his findings with Dr. Grijalva, who is planning on dialyzing him tomorrow. His chest pain likely is noncardiac with two sets of troponin being negative. He will continue his aspirin, Plavix, and Cilostazol. He will also continue on his anagrelide, atorvastatin, Coreg, Imdur, lisinopril, Paxil, and finasteride as before. I have discussed code status with him, and he wants to be a do not resuscitate. This was confirmed with the patient at bedside. The patient will have volume removal with hemodialysis tomorrow. We will also obtain PT/OT evaluations and see his functional status. The patient is 72 years old and has multiple medical issues and also has a daughter , who has cerebral palsy at home. His sister, Ms. Veda Thrasher apparently comes and helps them out. We will involve Case Management for help with discharge planning. Job ID: [id number] [facility]
[2018-06-07] MEDS ORDERED: Ondansetron PF 4 MG/2 ML Vial IVP PRN (22:31)
[2018-06-07] MEDS ORDERED: Ondansetron ODT 4 MG TAB SL PRN (22:31)
[2018-06-07 22:48] VITALS: BMI 19.2
[2018-06-08 00:38] LABS: Troponin I Less than 0.010 ng/mL (< 0.028)
[2018-06-08] MEDS: Atorvastatin Calcium 40 MG TAB PO SCH ×2 (00:57→20:59)
[2018-06-08] MEDS: Acetaminophen 325 MG TAB PO PRN ×2 (04:53→14:55)
[2018-06-08 06:48] LABS: Albumin 2.9 g/dL (3.4-4.8); Anion Gap 12 mmol/L (10-20); BUN (Urea Nitrogen) 55 mg/dL (8.4-25.7); BUN/Creatinine Ratio 13.78; Calc. Creatinine Clearance 12 mL/min (70-130); Calcium 8.4 mg/dL (7.8-10.44); Carbon Dioxide 30 mmol/L (23-31); Chloride 95 mmol/L (98-107); Cholesterol 99 mg/dl (< 200 Desired); Estimated GFR-MDRD 15; Glucose 87 mg/dL (83-110); HDL Cholesterol 33 mg/dL (>60 Neg Risk); LDL Cholesterol, Calculated 44 mg/dL; Phosphorus 5.9 mg/dL (2.3-4.7); Potassium 4.3 mmol/L (3.5-5.1); Sodium 133 mmol/L (136-145); Triglycerides 110 mg/dL (Less than 150)
[2018-06-08 06:58] LABS: Band 15 % (5-11); Eosinophils 1 % (0-10); Hemoglobin 8.4 g/dL (14.0-18.0); Hypochromia SLIGHT = 6-15 cells (100X) (0-5/hpf); Lymphocytes 6 % (21-51); MDiff Complete? YES; Mean Corpuscular HGB CONC 30.6 g/dL (32.0-36.0); Mean Corpuscular Hemoglobin 32.1 pg (27.0-31.0); Mean Platelet Volume 8.4 fL (7.4-10.4); Microcytosis SLIGHT = 6-15 cells (100X) (0-5/hpf); Monocytes 12 % (0-10); Neutrophil 66 % (42-75); PLT Morphology Comment Appears Adequate; Platelet Count 309 thou/uL (130-400); RBC Distribution Width 17.7 % (11.5-14.5); Red Blood Cell (RBC) Count 2.61 mill/uL (4.70-6.10); White Blood Cell (WBC) Count 25.4 thou/uL (4.8-10.8)
[2018-06-08] MEDS ORDERED: Clopidogrel Bisulfate 75 MG TAB PO SCH (10:45)
[2018-06-08 12:21] LABS: HBSAg Index 1.26 S/CO (0-0.99)
[2018-06-08 12:22] LABS: Hep B Surf Ag Reflx Confirmation S/CO (NonReactive)
--- NOTE | 2018-06-08 12:38 | PDOC.PN ---
- Subjective Encounter Start Date: 06/08/18 Encounter Start Time: 08:40 Subjective: is having HD, no sob - Objective Resuscitation Status - Order Detail: 06/07/18 20:00 Resuscitation Status Routine Resuscitation Status: DNAR: NO Resuscitation Discussed with: POA: sister Ms.Rosa bedolla Additional comments: d/w patient at bedside MAR Reviewed: Yes Vital Signs & Weight: Vital Signs (12 hours) Temp Pulse Resp BP Pulse Ox 06/08/18 08:11 98 06/08/18 07:00 98.0 F 70 16 107/55 L 98 06/08/18 04:00 98.4 F 80 16 116/59 L 100 Weight Weight 111 lb 14.4 oz I&O: 06/07/18 06/08/18 06/09/18 06:59 06:59 06:59 Intake Total 290 Balance 290 Result Diagrams: 06/08/18 05:39 06/08/18 05:39 Phys Exam - Physical Examination HEENT: PERRLA, moist MMs Neck: no JVD, supple Respiratory: no wheezing, no rales Cardiovascular: RRR, no significant murmur Gastrointestinal: soft, non-tender, positive bowel sounds Musculoskeletal: no edema, pulses present Neurological: non-focal, moves all 4 limbs Psychiatric: normal affect, A&O x 3 Dx/Plan (1) CHF exacerbation Code(s): I50.9 - HEART FAILURE, UNSPECIFIED Status: Acute Qualifiers: Heart failure type: unspecified Qualified Code(s): I50.9 - Heart failure, unspecified (2) Volume overload Code(s): E87.70 - FLUID OVERLOAD, UNSPECIFIED Status: Acute (3) Moderate protein-calorie malnutrition Code(s): E44.0 - MODERATE PROTEIN-CALORIE MALNUTRITION Status: Chronic (4) Atrial fibrillation Code(s): I48.91 - UNSPECIFIED ATRIAL FIBRILLATION Status: Chronic Qualifiers: Atrial fibrillation type: paroxysmal Qualified Code(s): I48.0 - Paroxysmal atrial fibrillation (5) End stage renal disease on dialysis Code(s): N18.6 - END STAGE RENAL DISEASE; Z99.2 - DEPENDENCE ON RENAL DIALYSIS Status: Chronic (6) Hypertension Code(s): I10 - ESSENTIAL (PRIMARY) HYPERTENSION Status: Chronic Qualifiers: Hypertension type: essential hypertension Qualified Code(s): I10 - Essential (primary) hypertension (7) CLL (chronic lymphocytic leukemia) Code(s): C91.90 - LYMPHOID LEUKEMIA, UNSPECIFIED NOT HAVING ACHIEVED REMISSION Status: Chronic - Plan for volume removal with HD today -: on asp, lipitor, cilostazol, plavix, watch for bleeding -: confirm from his pharmacy if he still takes all the above -: on anagrelide, coreg, lisinopril and imdur -: encourage po intake, PT to mobilize as tolerated * . Review of Systems - Medications/Allergies Allergies/Adverse Reactions: Allergies Allergy/AdvReac Type Severity Reaction Status Date / Time No Known Allergies Allergy Verified 06/07/18 22:36 Medications: Current Medications Acetaminophen (Tylenol) 650 mg PO Q4H PRN PRN Reason: Headache/Fever/Mild Pain (1-3) Last Admin: 06/08/18 04:53 Dose: 650 mg Anagrelide HCl (Agrylin) 0.5 mg PO TID [facility] Aspirin (Aspirin Chewable) 81 mg PO DAILY [facility] Atorvastatin Calcium (Lipitor) 40 mg PO QPM [facility] Last Admin: 06/08/18 00:57 Dose: 40 mg Calcium Acetate (Phoslo) 1,334 mg PO TID-WM [facility] Carvedilol (Coreg) 12.5 mg PO BID-WM [facility] Cilostazol (Pletal) 50 mg PO BID-AC [facility] Clopidogrel Bisulfate (Plavix) 75 mg PO DAILY [facility] Enoxaparin Sodium (Lovenox) 30 mg SC 0900 [facility] Famotidine (Pepcid) 20 mg PO DAILY [facility] Finasteride (Proscar) 5 mg PO DAILY [facility] Guaifenesin/Dextromethorphan (Robitussin Dm) 15 ml PO Q4H PRN PRN Reason: Cough Isosorbide Mononitrate (Imdur Er) 30 mg PO DAILY [facility] Lisinopril (Zestril) 5 mg PO DAILY [facility] Multivitamins (Multivit, Chewable Sf) 1 tab PO DAILY [facility] Nitroglycerin (Nitrostat) 0.4 mg PO Q5MIN PRN PRN Reason: Chest Pain Paroxetine HCl (Paxil) 10 mg PO DAILY [facility] Senna/Docusate Sodium (Senokot S) 2 tab PO BID PRN PRN Reason: Constipation Sodium Chloride (Flush - Normal Saline) 10 ml IVF Q12HR KAMILAH Sodium Chloride (Flush - Normal Saline) 10 ml IVF PRN PRN PRN Reason: Saline Flush
[2018-06-08] MEDS: Calcium Acetate 667 MG CAP PO SCH ×3 (14:26→17:44)
[2018-06-08] MEDS: Cilostazol 100 MG TAB PO SCH ×2 (14:27→17:42)
[2018-06-08] MEDS: Anagrelide HCl 0.5 MG CAP PO SCH ×3 (14:27→20:59)
[2018-06-08] MEDS: Carvedilol 6.25 MG TAB PO SCH ×2 (14:27→17:44)
[2018-06-08] MEDS: Lisinopril 5 MG TAB PO SCH (14:50)
[2018-06-08] MEDS: Famotidine 20 MG TAB PO SCH (14:50)
[2018-06-08] MEDS: PARoxetine 20 MG TAB PO SCH (14:51)
[2018-06-08] MEDS: Multivit, Chewable SF 1 TAB PO SCH (14:52)
[2018-06-08] MEDS: Finasteride 5 MG TAB PO SCH (14:52)
[2018-06-08] MEDS: Enoxaparin Sodium 30 MG/0.3 ML SYRINGE SC SCH (15:25)
--- NOTE | 2018-06-08 19:16 | PRG ---
DATE OF SERVICE: 06/08/2018 SUBJECTIVE: The patient is doing okay and noted with the following vital signs. OBJECTIVE: VITAL SIGNS: Afebrile, temperature 98.1, pulse 70, respiratory rate of 18, O2 saturations are 97%, and blood pressure 149/69. HEENT: Unremarkable. CARDIOVASCULAR SYSTEM: First and second heart sounds are heard. RESPIRATORY SYSTEM: Clear to auscultation. DIGESTIVE SYSTEM: Revealed a benign abdomen with positive bowel sounds. EXTREMITIES: No peripheral edema. SKIN: No new gross rash. LYMPHATICS: No peripheral lymphadenopathy. PLAN: 1. The patient is being dialyzed today. We will remain on Friday, Friday, and Friday schedule. 2. planning by the primary team. Job ID: [id number]
[2018-06-09] MEDS: Acetaminophen 325 MG TAB PO PRN ×2 (00:59→09:21)
[2018-06-09 02:13] LABS: Hep B Surface AG-Rflx Sendout Negative (Negative)
[2018-06-09] MEDS ORDERED: Clopidogrel Bisulfate 75 MG TAB PO SCH (09:00)
[2018-06-09] MEDS: Multivit, Chewable SF 1 TAB PO SCH (09:12)
[2018-06-09] MEDS: Finasteride 5 MG TAB PO SCH (09:12)
[2018-06-09] MEDS: Cilostazol 100 MG TAB PO SCH (09:12)
[2018-06-09] MEDS: Calcium Acetate 667 MG CAP PO SCH ×2 (09:13→12:06)
[2018-06-09] MEDS: PARoxetine 20 MG TAB PO SCH (09:13)
[2018-06-09] MEDS: Lisinopril 5 MG TAB PO SCH (09:13)
[2018-06-09] MEDS: Famotidine 20 MG TAB PO SCH (09:14)
[2018-06-09] MEDS: Carvedilol 6.25 MG TAB PO SCH (09:14)
[2018-06-09] MEDS: Enoxaparin Sodium 30 MG/0.3 ML SYRINGE SC SCH (09:15)
[2018-06-09] MEDS: Anagrelide HCl 0.5 MG CAP PO SCH ×2 (09:16→15:35)
--- NOTE | 2018-06-09 10:17 | PDOC.PN ---
- Subjective Encounter Start Date: 06/09/18 Encounter Start Time: 08:45 Subjective: no sob or chest pain -: couldn't sleep due to hosp mattress, slept on the couch last night -: wants to go home - Objective Resuscitation Status - Order Detail: 06/07/18 20:00 Resuscitation Status Routine Resuscitation Status: DNAR: NO Resuscitation Discussed with: POA: sister Ms.Rosa bedolla Additional comments: d/w patient at bedside MAR Reviewed: Yes Vital Signs & Weight: Vital Signs (12 hours) Temp Pulse Resp BP Pulse Ox 06/09/18 09:13 67 06/09/18 08:00 97.7 F 68 17 130/63 98 06/09/18 04:00 97.5 F L 67 18 125/60 99 06/09/18 00:00 98.9 F 77 12 124/60 100 Weight Weight 100 lb 1.6 oz I&O: 06/08/18 06/09/18 06/10/18 06:59 06:59 06:59 Intake Total 290 240 Output Total 600 Balance 290 -360 Result Diagrams: 06/08/18 05:39 06/08/18 05:39 Phys Exam - Physical Examination HEENT: PERRLA, moist MMs Neck: no JVD, supple Respiratory: no wheezing, no rales, no rhonchi Cardiovascular: RRR, no significant murmur Gastrointestinal: soft, non-tender, no distention, positive bowel sounds Musculoskeletal: no edema, pulses present Neurological: non-focal, moves all 4 limbs Psychiatric: normal affect, A&O x 3 Dx/Plan (1) CHF exacerbation Code(s): I50.9 - HEART FAILURE, UNSPECIFIED Status: Resolved Qualifiers: Heart failure type: unspecified Qualified Code(s): I50.9 - Heart failure, unspecified (2) Volume overload Code(s): E87.70 - FLUID OVERLOAD, UNSPECIFIED Status: Resolved (3) Moderate protein-calorie malnutrition Code(s): E44.0 - MODERATE PROTEIN-CALORIE MALNUTRITION Status: Chronic (4) Atrial fibrillation Code(s): I48.91 - UNSPECIFIED ATRIAL FIBRILLATION Status: Chronic Qualifiers: Atrial fibrillation type: paroxysmal Qualified Code(s): I48.0 - Paroxysmal atrial fibrillation (5) End stage renal disease on dialysis Code(s): N18.6 - END STAGE RENAL DISEASE; Z99.2 - DEPENDENCE ON RENAL DIALYSIS Status: Chronic (6) Hypertension Code(s): I10 - ESSENTIAL (PRIMARY) HYPERTENSION Status: Chronic Qualifiers: Hypertension type: essential hypertension Qualified Code(s): I10 - Essential (primary) hypertension (7) CLL (chronic lymphocytic leukemia) Code(s): C91.90 - LYMPHOID LEUKEMIA, UNSPECIFIED NOT HAVING ACHIEVED REMISSION Status: Chronic - Plan to have his regular HD tomorrow -: dc pt home -: to f/u with PCP in 1 week -: has HH and will activate it -: does not want placement, amb 20ft with rw. * . Review of Systems - Medications/Allergies Allergies/Adverse Reactions: Allergies Allergy/AdvReac Type Severity Reaction Status Date / Time No Known Allergies Allergy Verified 06/07/18 22:36 Medications: Current Medications Acetaminophen (Tylenol) 650 mg PO Q4H PRN PRN Reason: Headache/Fever/Mild Pain (1-3) Last Admin: 06/09/18 09:21 Dose: 650 mg Anagrelide HCl (Agrylin) 0.5 mg PO TID [facility] Last Admin: 06/09/18 09:16 Dose: 0.5 mg Aspirin (Aspirin Chewable) 81 mg PO DAILY [facility] Last Admin: 06/09/18 09:05 Dose: 81 mg Atorvastatin Calcium (Lipitor) 40 mg PO QPM [facility] Last Admin: 06/08/18 20:59 Dose: 40 mg Calcium Acetate (Phoslo) 1,334 mg PO TID-[facility] Last Admin: 06/09/18 09:13 Dose: 1,334 mg Carvedilol (Coreg) 12.5 mg PO BID-[facility] Last Admin: 06/09/18 09:14 Dose: 12.5 mg Cilostazol (Pletal) 50 mg PO BID-AC [facility] Last Admin: 06/09/18 09:12 Dose: 50 mg Clopidogrel Bisulfate (Plavix) 75 mg PO DAILY [facility] Last Admin: 06/09/18 09:14 Dose: 75 mg Enoxaparin Sodium (Lovenox) 30 mg SC 0900 [facility] Last Admin: 06/09/18 09:15 Dose: 30 mg Famotidine (Pepcid) 20 mg PO DAILY [facility] Last Admin: 06/09/18 09:14 Dose: 20 mg Finasteride (Proscar) 5 mg PO DAILY [facility] Last Admin: 06/09/18 09:12 Dose: 5 mg Guaifenesin/Dextromethorphan (Robitussin Dm) 15 ml PO Q4H PRN PRN Reason: Cough Isosorbide Mononitrate (Imdur Er) 30 mg PO DAILY [facility] Last Admin: 06/09/18 09:13 Dose: 30 mg Lisinopril (Zestril) 5 mg PO DAILY [facility] Last Admin: 06/09/18 09:13 Dose: 5 mg Multivitamins (Multivit, Chewable Sf) 1 tab PO DAILY [facility] Last Admin: 06/09/18 09:12 Dose: 1 tab Nitroglycerin (Nitrostat) 0.4 mg PO Q5MIN PRN PRN Reason: Chest Pain Paroxetine HCl (Paxil) 10 mg PO DAILY [facility] Last Admin: 06/09/18 09:13 Dose: 10 mg Senna/Docusate Sodium (Senokot S) 2 tab PO BID PRN PRN Reason: Constipation Sodium Chloride (Flush - Normal Saline) 10 ml IVF Q12HR [facility] Last Admin: 06/09/18 09:16 Dose: 10 ml Sodium Chloride (Flush - Normal Saline) 10 ml IVF PRN PRN PRN Reason: Saline Flush
--- NOTE | 2018-06-09 11:13 | PQF ---
CLINICAL DOCUMENTATION IMPROVEMENT CLARIFICATION FORM: ICD-10 Updated PLEASE DO AN ADDENDUM TO THE PROGRESS NOTE WITH ANY DOCUMENTATION UPDATES OR ADDITIONS AND CARRY THROUGH TO DC SUMMARY. THANK YOU. DATE: 06/09/18 ATTN: DR. BRADLEY Please exercise your independent, professional judgment in responding to the clarification form. Clinical indicators are provided on the bottom of this form for your review Please check appropriate box(s): [ ] Acute Respiratory Failure: [ ] with Hypoxia[ ] with Hypercapnia [ ] Acute On Chronic Respiratory Failure: [ ] with Hypoxia [ ] with Hypercapnia [ ] Chronic Respiratory Failure only [ ] with Hypoxia [ ] with Hypercapnia [ x] Other diagnosis ___No respiratory failure this admission [ ] Unable to determine In addition, please specify: Present on Admission (POA): [ ] Yes [ ] No [ ] Unable to determine For continuity of documentation, please document condition throughout progress notes and discharge summary. Thank You. CLINICAL INDICATORS - SIGNS / SYMPTOMS / LABS ER NOTE: "ON HOME O2 FOR CHF" "BREATH SOUNDS DIMINISHED, TO BILATERAL UPPER LOBES, BILATERAL LOWER LOBES" RISKS: CHF EXACERBATION ESRD VOLUME OVERLOAD TREATMENT: SUPPLEMENTAL OXYGEN TELEMETRY MONITORING (This form is maintained as a part of the permanent medical record) 2014 [employer] All Rights Reserved [email or web address] Office: [phone] [facility]OSPITALJose
--- NOTE | 2018-06-09 11:24 | PQF ---
CLINICAL DOCUMENTATION IMPROVEMENT CLARIFICATION FORM: ICD-10 Updated PLEASE DO AN ADDENDUM TO THE PROGRESS NOTE WITH ANY DOCUMENTATION UPDATES OR ADDITIONS AND CARRY THROUGH TO DC SUMMARY. THANK YOU. DATE: 06/09/18 ATTN: DR. BRADLEY Please exercise your independent, professional judgment in responding to the clarification form. Clinical indicators are provided on the bottom of this form for your review Please check appropriate box(s): HEART FAILURE: A. TYPE: [ x ] Systolic / HFrEF [ ] Diastolic / HFpEF [ ] Combined Systolic / Diastolic B. ACUITY [ ] Acute [ x ] Acute on Chronic [ ] Chronic [ ] Other diagnosis [ ] Unable to determine In addition, please specify: Present on Admission (POA): [x ] Yes [ ] No [ ] Unable to determine For continuity of documentation, please document condition throughout progress notes and discharge summary. Thank You. CLINICAL INDICATORS - SIGNS / SYMPTOMS / LABS ER NOTE: "BNP IS GREATER THAN 5000 WITH ELEVATED WBC ON TRANSFER PAPERWORK." ECHO REPORT: "LEFT VENTRICULAR SIZE IS MILDLY INCREASED" "OVERALL LEFT VENTRICULAR FUNCTION IS MILDLY DEPRESSED" "EJECTION FRACTION IS VISUALLY ESTIMATED AT 40-45%" RISKS: H/O CHF ESRD VOLUME OVERLOAD TREATMENT: COREG (06/08-PRESENT) LISINOPRIL (06/08-PRESENT) HEMODIALYSIS CARDIAC MONITORING ECHOCARDIOGRAM (This form is maintained as a part of the permanent medical record) 2014 [employer] All Rights Reserved [email or web address] Office: [phone] [facility]
[2018-06-09 12:32] VITALS: TEMP 97.5
[2018-06-09 14:14] VITALS: BP 134/64
--- NOTE | 2018-06-09 15:13 | DIS ---
DATE OF ADMISSION: 06/07/2018 DATE OF DISCHARGE: 06/09/2018 DISCHARGE DISPOSITION: To home. PRIMARY DISCHARGE DIAGNOSES: Volume overload with congestive heart failure exacerbation, resolved; end-stage renal disease, on hemodialysis; moderate protein-calorie malnutrition; history of paroxysmal atrial fibrillation, currently in sinus rhythm; hypertension; chronic lymphatic leukemia. PROCEDURES DONE DURING HOSPITALIZATION: Echo with 2D Doppler done showed EF of 40% to 45% with diastolic dysfunction. White count of 25, H and H 8.4 and 27, platelet count 309, with 66% neutrophils. BUN 55, creatinine 3.9, albumin is 2.9, LDL is 44. Troponin x3 negative. INPATIENT CONSULT: Dr. Grijalva for Nephrology. DISCHARGE MEDICATIONS: 1. Aspirin 81 mg p.o. daily. 2. Plavix 75 mg p.o. daily. 3. Cilostazol 50 mg twice daily. 4. Anagrelide 0.5 mg p.o. three times daily. 5. Coreg 12.5 mg p.o. twice daily. 6. Imdur extended release 30 mg p.o. daily. 7. Lisinopril 5 mg p.o. daily. 8. Paroxetine 10 mg p.o. at bedtime. ALLERGIES: NO KNOWN DRUG ALLERGIES. DISCHARGE PLAN: The patient to follow up with primary care physician in one week. BRIEF COURSE DURING HOSPITALIZATION: The patient initially was transferred from [facility] for complaints of shortness of breath and chest pain. He was volume overloaded. The patient also has known history of heart failure. Echo done here revealed ejection fraction of around 40%. He had hemodialysis done with removal of volume. The patient's chest pain completely resolved. Please note, the patient is on aspirin, Plavix, cilostazol, and anagrelide. He needs to follow up with his primary care physician and see if he needs all of these medications. He is at risk for bleed versus peptic ulcer disease. He is hemodynamically stable. Prior to discharge, he was ambulated 20 to 25 feet with a rolling walker and is wanting to go home. He does not want to be placed. He will have his regular hemodialysis session tomorrow. Please see a [id number] documentation on [employer] for the day of discharge on [employer]. Job ID: [id number] MTDD
== END 2018-06-09 15:59 | disposition home health service (06) | DRG 291 ==
LOC: ERS 17:08 → ERHOLD 19:41 → 2SW 22:12 → 2NO 06-08 11:33
PROVIDERS: ADMIT Internal Medicine; ATTEND Internal Medicine
PROC: 5A1D70Z Performance of Urinary Filtration, Intermittent, Less than 6 Hours Per Day (ICD-10-PCS; principal; 2018-06-07)
DX: I13.2 Hypertensive heart and chronic kidney disease with heart failure and with stage 5 chronic kidney disease, or end stage renal disease (principal); I50.23 Acute on chronic systolic (congestive) heart failure; E44.0 Moderate protein-calorie malnutrition; C91.00 Acute lymphoblastic leukemia not having achieved remission; Z68.1 Body mass index [BMI] 19.9 or less, adult; I25.10 Atherosclerotic heart disease of native coronary artery without angina pectoris; E11.22 Type 2 diabetes mellitus with diabetic chronic kidney disease; Z99.2 Dependence on renal dialysis; E78.5 Hyperlipidemia, unspecified; I49.3 Ventricular premature depolarization; F32.9 Major depressive disorder, single episode, unspecified; Z79.899 Other long term (current) drug therapy; Z66 Do not resuscitate; Z79.82 Long term (current) use of aspirin; Z79.02 Long term (current) use of antithrombotics/antiplatelets; I48.0 Paroxysmal atrial fibrillation; D64.9 Anemia, unspecified
CPT/HCPCS: 36415; 80053; 80061; 80069; 82248; 83615; 84100; 84484; 84550; 85025; 87340; 93005; 93306; 93798; 99283; G8978-GP-CM; G8979-GP-CK; G8987-GO-CL; G8988-GO-CJ; J1650